=== PATIENT | female | born 1960 | race Hispanic/Latino ===

== ENCOUNTER 2020-12-06 06:44 | Inpatient (IN) | payer MEDICARE ==
[2020-12-06 18:54] LABS: Basophils % (Auto) 0.7 % (0.0-1.8); Eosinophils # (Auto) 0.2 K/mm3 (0.0-0.4); Eosinophils % (Auto) 3.4 % (0.0-4.3); Hematocrit 42.9 % (30.3-42.9); Lymphocytes # (Auto) 1.3 K/mm3 (1.2-5.4); Lymphocytes % (Auto) 23.2 % (13.4-35.0); Mean Corpuscular HGB Conc 33 % (30-34); Mean Corpuscular Volume 93 fl (79-97); Monocytes # (Auto) 0.3 K/mm3 (0.0-0.8); Monocytes % (Auto) 5.4 % (0.0-7.3); Platelet Count 256 K/mm3 (140-440); Red Blood Count 4.64 M/mm3 (3.65-5.03); Red Cell Distribution Width 14.4 % (13.2-15.2)
[2020-12-06 19:15] LABS: Calcium 8.8 mg/dL (8.4-10.2); Chol/HDL Ratio 2.5 %
--- NOTE | 2020-12-06 20:42 | Consultation ---
History of Present Illness - Reason for Consult Consult date: 12/06/20 Medical management Requesting physician: ZEN DO - History of Present Illness 60 YO Female with PSA, Obesity, Nicotine Dependence, Schizophrenia [facility]. Consult placed by Dr. Do for medical management. Patient seen and evaluated in the recreation room. Patient resting comfortably and denies complaints. Patient denies fever, chills , chest pain, palpitation, productive cough, skin rash, recent ill contacts, or known exposure to COVID-19. No reported nursing events. Patient cooperative with exam and interview. Past History Past Medical History: other (see HPI) Past Surgical History: No surgical history, Other (Reviewed) Social history: single, smoking. denies: alcohol abuse, prescription drug abuse Family history: hypertension Medications and Allergies Allergies Allergy/AdvReac Type Severity Reaction Status Date / Time chlorpromazine Allergy Unknown Verified 12/06/20 10:35 haloperidol Allergy Unknown Verified 12/06/20 10:35 ketorolac Allergy Unknown Verified 12/06/20 10:35 risperidone Allergy Unknown Verified 12/06/20 10:35 Home Medications Medication Instructions Recorded Confirmed Last Taken Type Divalproex Dr [DepaKOTE DR] 500 mg PO BID 12/06/20 12/06/20 Unknown History Ibuprofen [Motrin 600 MG tab] 600 mg PO TID 12/06/20 12/06/20 Unknown History Levothyroxine [Synthroid] 125 mcg PO QAM 12/06/20 12/06/20 Unknown History Pantoprazole [Protonix] 40 mg PO QDAY 12/06/20 12/06/20 Unknown History Ziprasidone [Geodon] 40 mg PO BID 12/06/20 12/06/20 Unknown History traZODone [Desyrel] 100 mg PO QHS 12/06/20 12/06/20 Unknown History Active Meds: Active Medications Divalproex Sodium (Divalproex Dr 500 Mg Tab) 500 mg PO BID NOBLE Ibuprofen (Ibuprofen 600 Mg Tab) 600 mg PO TID NOBLE Levothyroxine Sodium (Levothyroxine 125 Mcg Tab) 125 mcg PO 0600 NOBLE Pantoprazole Sodium (Pantoprazole 40 Mg Tab) 40 mg PO QDAY NOBLE Trazodone HCl (Trazodone 100 Mg Tab) 100 mg PO QHS NOBLE Ziprasidone (Ziprasidone 40 Mg Cap) 40 mg PO BID COUNTS INCLUDE 234 BEDS AT THE [facility] Review of Systems Constitutional: no weight loss, no weight gain, no fever, no chills Ears, nose, mouth and throat: no ear pain, no ear discharge, no tinnitis, no decreased hearing Breasts: no change in shape, no mass Cardiovascular: no chest pain, no palpitations, no rapid/irregular heart beat, no edema, no syncope Respiratory: no cough, no cough with sputum, no excessive sputum, no hemoptysis Gastrointestinal: no abdominal pain, no nausea, no vomiting, no diarrhea, no hematemesis Genitourinary Female: no pelvic pain, no dysuria, no urinary frequency, no urgency Rectal: no pain, no incontinence, no bleeding Musculoskeletal: no neck stiffness, no neck pain, no shooting arm pain Integumentary: no rash, no pruritis, no redness, no sores, no wounds Neurological: no transient paralysis, no paralysis, no weakness, no parathesias, no numbness, no tingling Psychiatric: no anxiety, no memory loss, no change in sleep habits, no sleep disturbances Endocrine: no cold intolerance, no polyphagia, no polydipsia, no polyuria Hematologic/Lymphatic: no easy bruising, no easy bleeding Allergic/Immunologic: no allergic rhinitis, no wheezing Exam - Constitutional Vitals: Temp Pulse Resp BP Pulse Ox 97.7 F 91 H 18 90/61 97 12/06/20 13:18 12/06/20 13:18 12/06/20 13:18 12/06/20 13:18 12/06/20 13:18 General appearance: Present: no acute distress, well-nourished - EENT Eyes: Present: PERRL ENT: hearing intact, clear oral mucosa - Neck Neck: Present: supple, normal ROM - Respiratory Respiratory effort: normal Respiratory: bilateral: CTA - Cardiovascular Heart Sounds: Present: S1 & S2. Absent: rub, click - Extremities Extremities: pulses symmetrical, No edema Peripheral Pulses: within normal limits - Abdominal General gastrointestinal: Present: soft, non-tender, non-distended, normal bowel sounds Female genitourinary: Present: normal - Integumentary Integumentary: Present: clear, warm, dry - Musculoskeletal Musculoskeletal: gait normal, strength equal bilaterally - Psychiatric Psychiatric: cooperative - Neurologic Neurologic: CNII-XII intact, moves all extremities Results - Labs CBC & Chem 7: 12/06/20 18:40 12/06/20 18:40 Labs: Abnormal lab results 12/06/20 12/06/20 Range/Units 18:40 18:40 Glucose 106 H (65-100) mg/dL HDL Cholesterol 70 H (40-59) mg/dL TSH 31.910 H (0.270-4.200) mlU/mL Assessment and Plan - Patient Problems (1) Obesity Current Visit: Yes Status: Acute Qualifiers: Body mass index: BMI 39.0-39.9 Plan to address problem: Balanced diet, increase physical activity at discharge, outpatient pulmonary follow-up for sleep study. (2) Nicotine dependence Current Visit: Yes Status: Acute Qualifiers: Nicotine product type: cigarettes Substance use status: in withdrawal Qualified Code(s): F17.213 - Nicotine dependence, cigarettes, with withdrawal Plan to address problem: Smoking cessation counseling, supportive care, nicotine transdermal patch daily, remove nightly. (3) Polysubstance abuse Current Visit: Yes Status: Acute Plan to address problem: Supportive care, outpatient substance abuse follow-up. No signs or symptoms of withdrawal at this time.
[2020-12-06] MEDS: IBUPROFEN 600 MG TAB PO SCH (20:58)
[2020-12-06] MEDS: traZODone 100 MG TAB PO SCH (21:54)
[2020-12-06] MEDS: DIVALPROEX DR 500 MG TAB PO SCH (21:54)
[2020-12-06] MEDS: ZIPRASIDONE 40 MG CAP PO SCH (21:54)
[2020-12-06] MEDS ORDERED: NICOTINE 7 MG/24 HR PATCH TD SCH (22:00)
[2020-12-07] MEDS: LEVOTHYROXINE 125 MCG TAB PO SCH (06:40)
--- NOTE | 2020-12-07 09:05 | History and Physical Report ---
GP History & Physical - History of Present Illness Date of admission: 12/06/20 Date of Examination: 12/07/20 Reason for Admission: Failure of Outpatient Treatment, Severe anxiety/depression History of Present Illness: Per Admission Note: "pt was initially taken to [facility] by EMS for walking around a assisted and complaining of chest, back and leg pain. After being discharged from [place] ED, pt refused to leave and was escorted out by the police for trespassing. Pt returned to [place] ED two more times before pt was deemed psychiatrically unstable and placed on a 1013." Lina Alvarado is a 60y/o female patient who states she was brought in for "confusion." She also says "I'm having delusions." The patient could not tell me what her delusions were when asked. She says "I'm not sure but it's all kinds of stuff." The patient denies SI/HI. When asked about hallucinations she says "they are not hallucinations, but delusions. I can't explain what they are about." She verbalizes using "meth, crack and cocaine." She denies alcohol use. She also says she smokes pack of cigarets daily. The patient says she has a history of schizophrenia and bipolar. She says she is currently not on any medications, but states she "was taking them." PAST PSYCHIATRIC HISTORY: Diagnoses: Bipolar, schizophrenia Suicide attempts or Self-harm behavior: Yes Prior psychiatric hospitalizations: Yes Substance Abuse history: meth, crack, cocaine Previous psychiatric medications tried: not currently on any Outpatient treatment: None PAST MEDICAL HISTORY: None reported Family Psychiatric History: None reported or documented SOCIAL HISTORY Marital Status: Single Living Arrangements: Alone Employment Status: Disabled Access to guns/weapons: Denies Education: High school History of Abuse: None report Legal History: None reported REVIEW OF SYSTEMS Constitutional: Negative for weight loss ENT: Negative for stridor Respiratory: Negative for cough or hemoptysis All other systems reviewed and are negative MENTAL STATUS EXAMINATION General Appearance and Behavior: Age appropriate, good hygiene, wearing appropriate clothes, good eye contact Cooperation: Participating/engaged, but Guarded Psychomotor Behavior: Psychomotor normal Mood: depressed Affect and affective range: congruent with stated mood Thought Process: illogical Thought Content: delusions Speech: Normal rate, volume and rhythm Suicidal Ideation: denies Homicidal Ideation: Denies HI Hallucinations: Denies Delusions: verbalizes delusions Impulse Control: Impaired Insight and Judgment: Limited insight and judgment Memory: limited Attention: Normal Orientation: Alert, Assessment and Plan (1) Schizophrenia Current Visit: Yes Status: Acute F32.9 Treatment Plan Patient admitted for inpatient psychiatric evaluation, medication adjustment and close monitoring The patient's behavior, mood, sleep and appetite will be closely monitored. Patient enrolled in individual and group therapeutic sessions and encouraged to attend. Patient provided with a safe and structured environment. Patient's physical health needs will be addressed by the Hospitalist. Hospitalist Consulted Labs including CBC, CMP, Lipid profile and Hemoglobin A1C levels ordered for baseline reference Social Assessment will be completed and the Business Mail Entry Clerk will work with patient and family to ensure a suitable and safe disposition Medication adjustment will be made as clinically indicated Restarted home medications Usual Wellness Islam/Preservation: - Start Trazodone 50 mg po QHS & 50 mg po QHS PRN between 10 PM & 2 AM for insomnia - Start Melatonin 5 mg po QHS to promote circadian rhythm - Start [place]-3 for brain health, reduce impulsivity, and as adjunctive treatment for mood disorder, continue upon discharge given overall benefits. - Start B1 prophylaxis with 200 mg po for 5 days The patient agreed on the treatment plan, understood the risk, benefit, alternative treatment, potential consequence of no treatment, and gave informed consent. Initial Certification I certify that the inpatient psychiatric services are required for treatment that could reasonably be expected to improve the patient's condition. Estimated days: 5 Post hospital care: primary care provider, psychiatric provider Legal Status: Voluntary Reaction to Hospitalization: Accepting Medications and Allergies Allergies Allergy/AdvReac Type Severity Reaction Status Date / Time chlorpromazine Allergy Unknown Verified 12/06/20 10:35 haloperidol Allergy Unknown Verified 12/06/20 10:35 ketorolac Allergy Unknown Verified 12/06/20 10:35 risperidone Allergy Unknown Verified 12/06/20 10:35 Home Medications Medication Instructions Recorded Confirmed Last Taken Type Divalproex Dr [DepaKOTE DR] 500 mg PO BID 12/06/20 12/06/20 Unknown History Ibuprofen [Motrin 600 MG tab] 600 mg PO TID 12/06/20 12/06/20 Unknown History Levothyroxine [Synthroid] 125 mcg PO QAM 12/06/20 12/06/20 Unknown History Pantoprazole [Protonix] 40 mg PO QDAY 12/06/20 12/06/20 Unknown History Ziprasidone [Geodon] 40 mg PO BID 12/06/20 12/06/20 Unknown History traZODone [Desyrel] 100 mg PO QHS 12/06/20 12/06/20 Unknown History Active Meds: Active Medications Divalproex Sodium (Divalproex Dr 500 Mg Tab) 500 mg PO BID [facility] Last Admin: 12/06/20 21:54 Dose: 500 mg Documented by: Ibuprofen (Ibuprofen 600 Mg Tab) 600 mg PO TID [facility] Last Admin: 12/06/20 20:58 Dose: 600 mg Documented by: Levothyroxine Sodium (Levothyroxine 125 Mcg Tab) 125 mcg PO 0600 [facility] Last Admin: 12/07/20 06:40 Dose: 125 mcg Documented by: Nicotine (Nicotine 7 Mg/24 Hr Patch) 7 mg TD Q24H [facility] Last Admin: 12/06/20 22:20 Dose: 7 mg Documented by: Pantoprazole Sodium (Pantoprazole 40 Mg Tab) 40 mg PO QDAY [facility] Trazodone HCl (Trazodone 100 Mg Tab) 100 mg PO QHS [facility] Last Admin: 12/06/20 21:54 Dose: 100 mg Documented by: Ziprasidone (Ziprasidone 40 Mg Cap) 40 mg PO BID [facility] Last Admin: 12/06/20 21:54 Dose: 40 mg Documented by: Results - Results Labs/Vitals: Laboratory Last Values WBC 5.7 K/mm3 (4.5-11.0) 12/06/20 18:40 RBC 4.64 M/mm3 (3.65-5.03) 12/06/20 18:40 Hgb 14.0 gm/dl (10.1-14.3) 12/06/20 18:40 Hct 42.9 % (30.3-42.9) 12/06/20 18:40 MCV 93 fl (79-97) 12/06/20 18:40 MCH 30 pg (28-32) 12/06/20 18:40 MCHC 33 % (30-34) 12/06/20 18:40 RDW 14.4 % (13.2-15.2) 12/06/20 18:40 Plt Count 256 K/mm3 (140-440) 12/06/20 18:40 Lymph % (Auto) 23.2 % (13.4-35.0) 12/06/20 18:40 [place] % (Auto) 5.4 % (0.0-7.3) 12/06/20 18:40 Eos % (Auto) 3.4 % (0.0-4.3) 12/06/20 18:40 Baso % (Auto) 0.7 % (0.0-1.8) 12/06/20 18:40 Lymph # (Auto) 1.3 K/mm3 (1.2-5.4) 12/06/20 18:40 [place] # (Auto) 0.3 K/mm3 (0.0-0.8) 12/06/20 18:40 Eos # (Auto) 0.2 K/mm3 (0.0-0.4) 12/06/20 18:40 Baso # (Auto) 0.0 K/mm3 (0.0-0.1) 12/06/20 18:40 Seg Neutrophils % 67.3 % (40.0-70.0) 12/06/20 18:40 Seg Neutrophils # 3.9 K/mm3 (1.8-7.7) 12/06/20 18:40 Sodium 139 mmol/L (137-145) 12/06/20 18:40 Potassium 3.8 mmol/L (3.6-5.0) 12/06/20 18:40 Chloride 102.6 mmol/L (98-107) 12/06/20 18:40 Carbon Dioxide 28 mmol/L (22-30) 12/06/20 18:40 Anion Gap 12 mmol/L 12/06/20 18:40 BUN 10 mg/dL (7-17) 12/06/20 18:40 Creatinine 1.0 mg/dL (0.6-1.2) 12/06/20 18:40 Estimated GFR 57 ml/min 12/06/20 18:40 BUN/Creatinine Ratio 10 % 12/06/20 18:40 Glucose 106 mg/dL (65-100) H 12/06/20 18:40 POC Glucose 104 mg/dL (70-105) 12/06/20 19:55 Hemoglobin A1c 5.5 % (4-6) 12/06/20 18:40 Calcium 8.8 mg/dL (8.4-10.2) 12/06/20 18:40 Total Bilirubin 0.30 mg/dL (0.1-1.2) 12/06/20 18:40 AST 18 units/L (5-40) 12/06/20 18:40 ALT 19 units/L (7-56) 12/06/20 18:40 Alkaline Phosphatase 112 units/L (35-129) 12/06/20 18:40 Total Protein 6.8 g/dL (6.3-8.2) 12/06/20 18:40 Albumin 4.0 g/dL (3.9-5) 12/06/20 18:40 Albumin/Globulin Ratio 1.4 % 12/06/20 18:40 Triglycerides 95 mg/dL (2-149) 12/06/20 18:40 Cholesterol 175 mg/dL (50-199) 12/06/20 18:40 LDL Cholesterol Direct 104 mg/dL (50-130) 12/06/20 18:40 HDL Cholesterol 70 mg/dL (40-59) H 12/06/20 18:40 Cholesterol/HDL Ratio 2.50 % 12/06/20 18:40 TSH 31.910 mlU/mL (0.270-4.200) H 12/06/20 18:40 Last Vital Signs Temp 98.4 F 12/06/20 22:00 Pulse 85 12/06/20 22:00 Resp 16 12/06/20 22:00 BP 97/66 12/06/20 22:00 Pulse Ox 96 12/06/20 22:00 Physical Examination - Constitutional Vitals: Vital Signs Temp Pulse Resp BP Pulse Ox 98.4 F 85 16 97/66 96 12/06/20 22:00 12/06/20 22:00 12/06/20 22:00 12/06/20 22:00 12/06/20 22:00 Temperature -Last 24 Hours Temperature 98.4 F Temperature 98.4 F Temperature 97.7 F Mental Status Exam - Vital signs Last Vital Signs Temp 98.4 F 12/06/20 22:00 Pulse 85 12/06/20 22:00 Resp 16 12/06/20 22:00 BP 97/66 12/06/20 22:00 Pulse Ox 96 12/06/20 22:00 Physician Certification - Certification Statement Physician Certification Statement: This is an acknowledgement statement that LINA ALVARADO is a 60 year old F who requires inpatient psychiatric admission for treatment which could reasonably be expected to improve the patient's condition for Estimated period of time patient will need to remain in the hospital: [ ] Plan for post-hospital care: [ ]
[2020-12-07] MEDS: IBUPROFEN 600 MG TAB PO SCH ×4 (09:26→20:54)
[2020-12-07] MEDS: DIVALPROEX DR 500 MG TAB PO SCH ×2 (09:26→21:22)
[2020-12-07] MEDS: ZIPRASIDONE 40 MG CAP PO SCH ×2 (09:26→21:22)
[2020-12-07] MEDS: PANTOPRAZOLE 40 MG TAB PO SCH (09:27)
[2020-12-07] MEDS: NICOTINE 7 MG/24 HR PATCH TD SCH (13:56)
--- NOTE | 2020-12-07 19:51 | Progress Note ---
Assessment and Plan - Patient Problems (1) Obesity Current Visit: Yes Status: Acute Qualifiers: Body mass index: BMI 39.0-39.9 Plan to address problem: Balanced diet, increase physical activity at discharge, outpatient pulmonary follow-up for sleep study. (2) Nicotine dependence Current Visit: Yes Status: Acute Qualifiers: Nicotine product type: cigarettes Substance use status: in withdrawal Qualified Code(s): F17.213 - Nicotine dependence, cigarettes, with withdrawal Plan to address problem: Smoking cessation counseling, supportive care, nicotine transdermal patch daily, remove nightly. (3) Polysubstance abuse Current Visit: Yes Status: Acute Plan to address problem: Supportive care, outpatient substance abuse follow-up. No signs or symptoms of withdrawal at this time. History Interval history: 60 YO Female with PSA, Obesity, Nicotine Dependence, Schizophrenia [facility]. Patient seen and evaluated in the recreation room. Patient resting comfortably and denies complaints. Patient cooperative with exam and interview. Hospitalist Physical - Constitutional Vitals: Temp Pulse Resp BP Pulse Ox 98.1 F 91 H 18 86/54 95 12/07/20 08:09 12/07/20 08:09 12/07/20 08:09 12/07/20 08:09 12/07/20 08:09 General appearance: Present: no acute distress, obese - EENT Eyes: Present: PERRL, EOM intact ENT: hearing intact - Neck Neck: Present: supple - Respiratory Respiratory: bilateral: CTA - Cardiovascular Rhythm: regular Heart Sounds: Present: S1 & S2 - Extremities Extremities: no ischemia Peripheral Pulses: within normal limits - Abdominal General gastrointestinal: soft, non-tender, non-distended - Integumentary Integumentary: Present: clear, erythema - Psychiatric Psychiatric: cooperative - Neurologic Neurologic: CNII-XII intact Results - Labs CBC & Chem 7: 12/06/20 18:40 12/06/20 18:40 Labs: Laboratory Last Values WBC 5.7 K/mm3 (4.5-11.0) 12/06/20 18:40 RBC 4.64 M/mm3 (3.65-5.03) 12/06/20 18:40 Hgb 14.0 gm/dl (10.1-14.3) 12/06/20 18:40 Hct 42.9 % (30.3-42.9) 12/06/20 18:40 MCV 93 fl (79-97) 12/06/20 18:40 MCH 30 pg (28-32) 12/06/20 18:40 MCHC 33 % (30-34) 12/06/20 18:40 RDW 14.4 % (13.2-15.2) 12/06/20 18:40 Plt Count 256 K/mm3 (140-440) 12/06/20 18:40 Lymph % (Auto) 23.2 % (13.4-35.0) 12/06/20 18:40 [place] % (Auto) 5.4 % (0.0-7.3) 12/06/20 18:40 Eos % (Auto) 3.4 % (0.0-4.3) 12/06/20 18:40 Baso % (Auto) 0.7 % (0.0-1.8) 12/06/20 18:40 Lymph # (Auto) 1.3 K/mm3 (1.2-5.4) 12/06/20 18:40 [place] # (Auto) 0.3 K/mm3 (0.0-0.8) 12/06/20 18:40 Eos # (Auto) 0.2 K/mm3 (0.0-0.4) 12/06/20 18:40 Baso # (Auto) 0.0 K/mm3 (0.0-0.1) 12/06/20 18:40 Seg Neutrophils % 67.3 % (40.0-70.0) 12/06/20 18:40 Seg Neutrophils # 3.9 K/mm3 (1.8-7.7) 12/06/20 18:40 Sodium 139 mmol/L (137-145) 12/06/20 18:40 Potassium 3.8 mmol/L (3.6-5.0) 12/06/20 18:40 Chloride 102.6 mmol/L (98-107) 12/06/20 18:40 Carbon Dioxide 28 mmol/L (22-30) 12/06/20 18:40 Anion Gap 12 mmol/L 12/06/20 18:40 BUN 10 mg/dL (7-17) 12/06/20 18:40 Creatinine 1.0 mg/dL (0.6-1.2) 12/06/20 18:40 Estimated GFR 57 ml/min 12/06/20 18:40 BUN/Creatinine Ratio 10 % 12/06/20 18:40 Glucose 106 mg/dL (65-100) H 12/06/20 18:40 POC Glucose 104 mg/dL (70-105) 12/06/20 19:55 Hemoglobin A1c 5.5 % (4-6) 12/06/20 18:40 Calcium 8.8 mg/dL (8.4-10.2) 12/06/20 18:40 Total Bilirubin 0.30 mg/dL (0.1-1.2) 12/06/20 18:40 AST 18 units/L (5-40) 12/06/20 18:40 ALT 19 units/L (7-56) 12/06/20 18:40 Alkaline Phosphatase 112 units/L (35-129) 12/06/20 18:40 Total Protein 6.8 g/dL (6.3-8.2) 12/06/20 18:40 Albumin 4.0 g/dL (3.9-5) 12/06/20 18:40 Albumin/Globulin Ratio 1.4 % 12/06/20 18:40 Triglycerides 95 mg/dL (2-149) 12/06/20 18:40 Cholesterol 175 mg/dL (50-199) 12/06/20 18:40 LDL Cholesterol Direct 104 mg/dL (50-130) 12/06/20 18:40 HDL Cholesterol 70 mg/dL (40-59) H 12/06/20 18:40 Cholesterol/HDL Ratio 2.50 % 12/06/20 18:40 TSH 31.910 mlU/mL (0.270-4.200) H 12/06/20 18:40 [place]/IV: Voiding Method Toilet Active Medications - Current Medications Current Medications: Generic Name Dose Route Start Last Admin Trade Name Freq PRN Reason Stop Dose Admin Divalproex Sodium 500 mg 12/06/20 22:00 12/07/20 09:[address] 500 Mg Tab PO 500 mg BID NOBLE Administration Ibuprofen 600 mg 12/06/20 20:00 12/07/20 14:02 Ibuprofen 600 Mg Tab PO Not Given TID NOBLE Levothyroxine Sodium 125 mcg 12/07/20 06:00 12/07/20 06:40 Levothyroxine 125 Mcg Tab PO 125 mcg 0600 NOBLE Administration Nicotine 7 mg 12/07/20 13:00 12/07/20 13:56 Nicotine 7 Mg/24 Hr Patch TD 7 mg DAILY NOBLE Administration Pantoprazole Sodium 40 mg 12/07/20 10:00 12/07/20 09:27 Pantoprazole 40 Mg Tab PO 40 mg QDAY NOBLE Administration Trazodone HCl 100 mg 12/06/20 22:00 12/06/20 21:54 Trazodone 100 Mg Tab PO 100 mg QHS NOBLE Administration Ziprasidone 40 mg 12/06/20 22:00 12/07/20 09:26 Ziprasidone 40 Mg Cap PO 40 mg BID NOBLE Administration
[2020-12-07] MEDS: traZODone 100 MG TAB PO SCH (21:22)
[2020-12-08] MEDS: LEVOTHYROXINE 125 MCG TAB PO SCH (05:46)
--- NOTE | 2020-12-08 08:27 | Progress Note ---
Subjective Date of service: 12/08/20 Principal diagnosis: Schizophrenia Subjective Comment: Per nurse note: Patient was quiet throughout the night. She woke this morning and vomited. She also had diarrhea. Patient presents as psychotic and had attempted to clean herself but had vomit and diarrhea all in her bathroom. Her room was cleaned and she took her thyroid medication. Patient will be closely monitored for safety. The patient was lying in bed. She is asleep. She seems excessively tired, as she never opens her eyes to look at me, and drifting off to sleep in between questioning. She says she didn't sleep well. The patient says she has been confused and delusional. She never opens her eyes to speak with me. When asked what kind of delusions she's been having, the patient appears to be searching for words. She then says "I don't know." She denies SI/HI or hallucinations. Reason for continued inpatient treatment: The patient appears to be having some psychoses as evidenced by feeling delusional and confused. The nursing staff a lso documented that the patient presents as psychotic. The patient has impaired sleep cycle. REVIEW OF SYSTEMS Constitutional: Negative for weight loss ENT: Negative for stridor Respiratory: Negative for cough or hemoptysis All other systems reviewed and are negative MENTAL STATUS EXAMINATION General Appearance and Behavior: Age appropriate, good hygiene, wearing appropriate clothes, good eye contact Cooperation: Participating/engaged, but Guarded Psychomotor Behavior: Psychomotor normal Mood: depressed Affect and affective range: congruent with stated mood Thought Process: illogical Thought Content: delusions Speech: Normal rate, volume and rhythm Suicidal Ideation: denies Homicidal Ideation: Denies HI Hallucinations: Denies Delusions: verbalizes delusions Impulse Control: Impaired Insight and Judgment: Limited insight and judgment Memory: limited Attention: Normal Orientation: Alert, Assessment and Plan (1) Schizophrenia Current Visit: Yes Status: Acute F32.9 Treatment Plan Patient admitted for inpatient psychiatric evaluation, medication adjustment and close monitoring The patient's behavior, mood, sleep and appetite will be closely monitored. Patient enrolled in individual and group therapeutic sessions and encouraged to attend. Patient provided with a safe and structured environment. Patient's physical health needs will be addressed by the Hospitalist. Hospitalist Consulted Labs including CBC, CMP, Lipid profile and Hemoglobin A1C levels ordered for baseline reference Valproic level 12/09/20 Social Assessment will be completed and the Ammonia Distiller will work with johnnie nt and family to ensure a suitable and safe disposition Medication adjustment will be made as clinically indicated Increased Trazondone 150mg po qhs Will adjust Depakote dose based on Valproic level Usual Wellness Worship/Preservation: - Start Trazodone 50 mg po QHS & 50 mg po QHS PRN between 10 PM & 2 AM for insomnia - Start Melatonin 5 mg po QHS to promote circadian rhythm - Start [place]-3 for brain health, reduce impulsivity, and as adjunctive treatment for mood disorder, continue upon discharge given overall benefits. - Start B1 prophylaxis with 200 mg po for 5 days The patient agreed on the treatment plan, understood the risk, benefit, alternative treatment, potential consequence of no treatment, and gave informed consent. Estimated days: 5 Post hospital care: primary care provider, psychiatric provider Medications and Allergies Allergies Allergy/AdvReac Type Severity Reaction Status Date / Time chlorpromazine Allergy Unknown Verified 12/06/20 10:35 haloperidol Allergy Unknown Verified 12/06/20 10:35 ketorolac Allergy Unknown Verified 12/06/20 10:35 risperidone Allergy Unknown Verified 12/06/20 10:35 Home Medications Medication Instructions Recorded Confirmed Last Taken Type Divalproex Dr [DepaKOTE DR] 500 mg PO BID 12/06/20 12/06/20 Unknown History Ibuprofen [Motrin 600 MG tab] 600 mg PO TID 12/06/20 12/06/20 Unknown History Levothyroxine [Synthroid] 125 mcg PO QAM 12/06/20 12/06/20 Unknown History Pantoprazole [Protonix] 40 mg PO QDAY 12/06/20 12/06/20 Unknown History Ziprasidone [Geodon] 40 mg PO BID 12/06/20 12/06/20 Unknown History traZODone [Desyrel] 100 mg PO QHS 12/06/20 12/06/20 Unknown History Active Meds: Active Medications Divalproex Sodium (Divalproex Dr 500 Mg Tab) 500 mg PO BID [facility] Last Admin: 12/07/20 21:22 Dose: 500 mg Documented by: Ibuprofen (Ibuprofen 600 Mg Tab) 600 mg PO TID [facility] Last Admin: 12/07/20 20:54 Dose: Not Given Documented by: Levothyroxine Sodium (Levothyroxine 125 Mcg Tab) 125 mcg PO 0600 [facility] Last Admin: 12/08/20 05:46 Dose: 125 mcg Documented by: Nicotine (Nicotine 7 Mg/24 Hr Patch) 7 mg TD DAILY [facility] Last Admin: 12/07/20 13:56 Dose: 7 mg Documented by: Pantoprazole Sodium (Pantoprazole 40 Mg Tab) 40 mg PO QDAY [facility] Last Admin: 12/07/20 09:27 Dose: 40 mg Documented by: Trazodone HCl (Trazodone 100 Mg Tab) 100 mg PO QHS [facility] Last Admin: 12/07/20 21:22 Dose: 100 mg Documented by: Ziprasidone (Ziprasidone 40 Mg Cap) 40 mg PO BID [facility] Last Admin: 12/07/20 21:22 Dose: Not Given Documented by: Results - Results Labs/Vitals: Laboratory Last Values WBC 5.7 K/mm3 (4.5-11.0) 12/06/20 18:40 RBC 4.64 M/mm3 (3.65-5.03) 12/06/20 18:40 Hgb 14.0 gm/dl (10.1-14.3) 12/06/20 18:40 Hct 42.9 % (30.3-42.9) 12/06/20 18:40 MCV 93 fl (79-97) 12/06/20 18:40 MCH 30 pg (28-32) 12/06/20 18:40 MCHC 33 % (30-34) 12/06/20 18:40 RDW 14.4 % (13.2-15.2) 12/06/20 18:40 Plt Count 256 K/mm3 (140-440) 12/06/20 18:40 Lymph % (Auto) 23.2 % (13.4-35.0) 12/06/20 18:40 [place] % (Auto) 5.4 % (0.0-7.3) 12/06/20 18:40 Eos % (Auto) 3.4 % (0.0-4.3) 12/06/20 18:40 Baso % (Auto) 0.7 % (0.0-1.8) 12/06/20 18:40 Lymph # (Auto) 1.3 K/mm3 (1.2-5.4) 12/06/20 18:40 [place] # (Auto) 0.3 K/mm3 (0.0-0.8) 12/06/20 18:40 Eos # (Auto) 0.2 K/mm3 (0.0-0.4) 12/06/20 18:40 Baso # (Auto) 0.0 K/mm3 (0.0-0.1) 12/06/20 18:40 Seg Neutrophils % 67.3 % (40.0-70.0) 12/06/20 18:40 Seg Neutrophils # 3.9 K/mm3 (1.8-7.7) 12/06/20 18:40 Sodium 139 mmol/L (137-145) 12/06/20 18:40 Potassium 3.8 mmol/L (3.6-5.0) 12/06/20 18:40 Chloride 102.6 mmol/L (98-107) 12/06/20 18:40 Carbon Dioxide 28 mmol/L (22-30) 12/06/20 18:40 Anion Gap 12 mmol/L 12/06/20 18:40 BUN 10 mg/dL (7-17) 12/06/20 18:40 Creatinine 1.0 mg/dL (0.6-1.2) 12/06/20 18:40 Estimated GFR 57 ml/min 12/06/20 18:40 BUN/Creatinine Ratio 10 % 12/06/20 18:40 Glucose 106 mg/dL (65-100) H 12/06/20 18:40 POC Glucose 104 mg/dL (70-105) 12/06/20 19:55 Hemoglobin A1c 5.5 % (4-6) 12/06/20 18:40 Calcium 8.8 mg/dL (8.4-10.2) 12/06/20 18:40 Total Bilirubin 0.30 mg/dL (0.1-1.2) 12/06/20 18:40 AST 18 units/L (5-40) 12/06/20 18:40 ALT 19 units/L (7-56) 12/06/20 18:40 Alkaline Phosphatase 112 units/L (35-129) 12/06/20 18:40 Total Protein 6.8 g/dL (6.3-8.2) 12/06/20 18:40 Albumin 4.0 g/dL (3.9-5) 12/06/20 18:40 Albumin/Globulin Ratio 1.4 % 12/06/20 18:40 Triglycerides 95 mg/dL (2-149) 12/06/20 18:40 Cholesterol 175 mg/dL (50-199) 12/06/20 18:40 LDL Cholesterol Direct 104 mg/dL (50-130) 12/06/20 18:40 HDL Cholesterol 70 mg/dL (40-59) H 12/06/20 18:40 Cholesterol/HDL Ratio 2.50 % 12/06/20 18:40 TSH 31.910 mlU/mL (0.270-4.200) H 12/06/20 18:40 Last Vital Signs Temp 97.5 F L 12/07/20 22:00 Pulse 78 12/07/20 22:00 Resp 18 12/07/20 22:00 BP 100/58 12/07/20 22:00 Pulse Ox 92 12/07/20 22:00
[2020-12-08] MEDS: ZIPRASIDONE 40 MG CAP PO SCH ×3 (09:49→21:40)
[2020-12-08] MEDS: DIVALPROEX DR 500 MG TAB PO SCH ×2 (09:49→21:16)
[2020-12-08] MEDS: PANTOPRAZOLE 40 MG TAB PO SCH (09:50)
[2020-12-08] MEDS: IBUPROFEN 600 MG TAB PO SCH ×2 (09:51→21:16)
[2020-12-08] MEDS: NICOTINE 7 MG/24 HR PATCH TD SCH (10:23)
[2020-12-08] MEDS: ONDANSETRON 4 MG ODT TAB PO PRN ×2 (13:56→21:39)
[2020-12-08] MEDS: traZODone 50 MG TAB PO SCH (21:16)
[2020-12-09] MEDS: LEVOTHYROXINE 125 MCG TAB PO SCH (06:07)
[2020-12-09] MEDS: ZIPRASIDONE 40 MG CAP PO SCH (10:30)
[2020-12-09] MEDS: DIVALPROEX DR 500 MG TAB PO SCH ×2 (10:30→21:31)
[2020-12-09] MEDS: IBUPROFEN 600 MG TAB PO SCH ×2 (10:30→15:31)
[2020-12-09] MEDS: NICOTINE 7 MG/24 HR PATCH TD SCH (10:30)
[2020-12-09] MEDS: PANTOPRAZOLE 40 MG TAB PO SCH (10:30)
--- NOTE | 2020-12-09 11:26 | Progress Note ---
Subjective Date of service: 12/09/20 Principal diagnosis: Schizophrenia Subjective Comment: Psych progress Patient seen this a.m. in the room, patient reports she is pleased, angry and irritated because I decided to withdraw from her sleep. Patient called me" f- bitch and a loud ass". Patient states she has been asking for a lot of things at this facility that she is not getting which also includes artificial tears for her eyes and that she also would like to stay in her room all day but in a letter. Reason for continued inpatient treatment: The patient appears to be having some psychoses as evidenced by feeling delusional and confused. The nursing staff also documented that the patient presents as psychotic. The patient has impaired sleep cycle. REVIEW OF SYSTEMS Constitutional: Negative for weight loss ENT: Negative for stridor Respiratory: Negative for cough or hemoptysis All other systems reviewed and are negative MENTAL STATUS EXAMINATION General Appearance and Behavior: Age appropriate, good hygiene, wearing appropriate clothes, good eye contact Cooperation: Participating/engaged, but Guarded Psychomotor Behavior: Psychomotor normal Mood: Angry and irritated Affect and affective range: congruent with stated mood Thought Process: illogical Thought Content: delusions Speech: Normal rate, volume and rhythm Suicidal Ideation: denies Homicidal Ideation: Denies HI Hallucinations: Denies Delusions: verbalizes delusions Impulse Control: Impaired Insight and Judgment: Limited insight and judgment Memory: limited Attention: Normal Orientation: Alert, Assessment and Plan (1) Schizophrenia Current Visit: Yes Status: Acute F32.9 Treatment Plan Patient admitted for inpatient psychiatric evaluation, medication adjustment and close monitoring The patient's behavior, mood, sleep and appetite will be closely monitored. Patient enrolled in individual and group therapeutic sessions and encouraged to attend. Patient provided with a safe and structured environment. Patient's physical health needs will be addressed by the Hospitalist. Hospitalist Consulted Labs including CBC, CMP, Lipid profile and Hemoglobin A1C levels ordered for baseline reference We will start patient on Abilify. Valproic level 12/09/20 Social Assessment will be completed and the Environmental Education Specialist will work with patient and family to ensure a suitable and safe disposition Medication adjustment will be made as clinically indicated Increased Trazondone 150mg po qhs Will adjust Depakote dose based on Valproic level Usual Wellness Restorationist/Preservation: - Start Trazodone 50 mg po QHS & 50 mg po QHS PRN between 10 PM & 2 AM for insomnia - Start Melatonin 5 mg po QHS to promote circadian rhythm - Start [place]-3 for brain health, reduce impulsivity, and as adjunctive treatment for mood disorder, continue upon discharge given overall benefits. - Start B1 prophylaxis with 200 mg po for 5 days The patient agreed on the treatment plan, understood the risk, benefit, alternative treatment, potential consequence of no treatment, and gave informed consent. Estimated days: 5 Post hospital care: primary care provider, psychiatric provider Medications and Allergies Allergies Allergy/AdvReac Type Severity Reaction Status Date / Time chlorpromazine Allergy Unknown Verified 12/06/20 10:35 haloperidol Allergy Unknown Verified 12/06/20 10:35 ketorolac Allergy Unknown Verified 12/06/20 10:35 risperidone Allergy Unknown Verified 12/06/20 10:35 Home Medications Medication Instructions Recorded Confirmed Last Taken Type Divalproex Dr [DepaKOTE DR] 500 mg PO BID 12/06/20 12/06/20 Unknown History Ibuprofen [Motrin 600 MG tab] 600 mg PO TID 12/06/20 12/06/20 Unknown History Levothyroxine [Synthroid] 125 mcg PO QAM 12/06/20 12/06/20 Unknown History Pantoprazole [Protonix] 40 mg PO QDAY 12/06/20 12/06/20 Unknown History Ziprasidone [Geodon] 40 mg PO BID 12/06/20 12/06/20 Unknown History traZODone [Desyrel] 100 mg PO QHS 12/06/20 12/06/20 Unknown History Active Meds: Active Medications Divalproex Sodium (Divalproex Dr 500 Mg Tab) 500 mg PO BID [facility] Last Admin: 12/09/20 10:30 Dose: 500 mg Documented by: Ibuprofen (Ibuprofen 600 Mg Tab) 600 mg PO TID [facility] Last Admin: 12/09/20 10:30 Dose: Not Given Documented by: Levothyroxine Sodium (Levothyroxine 125 Mcg Tab) 125 mcg PO 0600 [facility] Last Admin: 12/09/20 06:07 Dose: 125 mcg Documented by: Nicotine (Nicotine 7 Mg/24 Hr Patch) 7 mg TD DAILY [facility] Last Admin: 12/09/20 10:30 Dose: 7 mg Documented by: Ondansetron HCl (Ondansetron 4 Mg Odt Tab) 4 mg PO Q8H PRN PRN Reason: Nausea And Vomiting Last Admin: 12/08/20 21:39 Dose: 4 mg Documented by: Pantoprazole Sodium (Pantoprazole 40 Mg Tab) 40 mg PO QDAY [facility] Last Admin: 12/09/20 10:30 Dose: 40 mg Documented by: Trazodone HCl (Trazodone 50 Mg Tab) 150 mg PO QHS [facility] Last Admin: 12/08/20 21:16 Dose: 150 mg Documented by: Ziprasidone (Ziprasidone 40 Mg Cap) 40 mg PO BID [facility] Last Admin: 12/09/20 10:30 Dose: Not Given Documented by: Results - Results Labs/Vitals: Laboratory Last Values WBC 5.7 K/mm3 (4.5-11.0) 12/06/20 18:40 RBC 4.64 M/mm3 (3.65-5.03) 12/06/20 18:40 Hgb 14.0 gm/dl (10.1-14.3) 12/06/20 18:40 Hct 42.9 % (30.3-42.9) 12/06/20 18:40 MCV 93 fl (79-97) 12/06/20 18:40 MCH 30 pg (28-32) 12/06/20 18:40 MCHC 33 % (30-34) 12/06/20 18:40 RDW 14.4 % (13.2-15.2) 12/06/20 18:40 Plt Count 256 K/mm3 (140-440) 12/06/20 18:40 Lymph % (Auto) 23.2 % (13.4-35.0) 12/06/20 18:40 [place] % (Auto) 5.4 % (0.0-7.3) 12/06/20 18:40 Eos % (Auto) 3.4 % (0.0-4.3) 12/06/20 18:40 Baso % (Auto) 0.7 % (0.0-1.8) 12/06/20 18:40 Lymph # (Auto) 1.3 K/mm3 (1.2-5.4) 12/06/20 18:40 [place] # (Auto) 0.3 K/mm3 (0.0-0.8) 12/06/20 18:40 Eos # (Auto) 0.2 K/mm3 (0.0-0.4) 12/06/20 18:40 Baso # (Auto) 0.0 K/mm3 (0.0-0.1) 12/06/20 18:40 Seg Neutrophils % 67.3 % (40.0-70.0) 12/06/20 18:40 Seg Neutrophils # 3.9 K/mm3 (1.8-7.7) 12/06/20 18:40 Sodium 139 mmol/L (137-145) 12/06/20 18:40 Potassium 3.8 mmol/L (3.6-5.0) 12/06/20 18:40 Chloride 102.6 mmol/L (98-107) 12/06/20 18:40 Carbon Dioxide 28 mmol/L (22-30) 12/06/20 18:40 Anion Gap 12 mmol/L 12/06/20 18:40 BUN 10 mg/dL (7-17) 12/06/20 18:40 Creatinine 1.0 mg/dL (0.6-1.2) 12/06/20 18:40 Estimated GFR 57 ml/min 12/06/20 18:40 BUN/Creatinine Ratio 10 % 12/06/20 18:40 Glucose 106 mg/dL (65-100) H 12/06/20 18:40 POC Glucose 104 mg/dL (70-105) 12/06/20 19:55 Hemoglobin A1c 5.5 % (4-6) 12/06/20 18:40 Calcium 8.8 mg/dL (8.4-10.2) 12/06/20 18:40 Total Bilirubin 0.30 mg/dL (0.1-1.2) 12/06/20 18:40 AST 18 units/L (5-40) 12/06/20 18:40 ALT 19 units/L (7-56) 12/06/20 18:40 Alkaline Phosphatase 112 units/L (35-129) 12/06/20 18:40 Total Protein 6.8 g/dL (6.3-8.2) 12/06/20 18:40 Albumin 4.0 g/dL (3.9-5) 12/06/20 18:40 Albumin/Globulin Ratio 1.4 % 12/06/20 18:40 Triglycerides 95 mg/dL (2-149) 12/06/20 18:40 Cholesterol 175 mg/dL (50-199) 12/06/20 18:40 LDL Cholesterol Direct 104 mg/dL (50-130) 12/06/20 18:40 HDL Cholesterol 70 mg/dL (40-59) H 12/06/20 18:40 Cholesterol/HDL Ratio 2.50 % 12/06/20 18:40 TSH 31.910 mlU/mL (0.270-4.200) H 12/06/20 18:40 Valproic Acid 73.6 ug/mL (50-100) 12/09/20 05:42 Last Vital Signs Temp 98.5 F 12/09/20 08:30 Pulse 75 12/09/20 08:30 Resp 18 12/08/20 19:44 BP 83/54 12/09/20 08:30 Pulse Ox 93 12/08/20 19:44
[2020-12-09] MEDS: traZODone 50 MG TAB PO SCH (21:31)
[2020-12-10] MEDS: LEVOTHYROXINE 125 MCG TAB PO SCH (05:20)
[2020-12-10] MEDS: ONDANSETRON 4 MG ODT TAB PO PRN (05:30)
--- NOTE | 2020-12-10 08:40 | Progress Note ---
Subjective Date of service: 12/10/20 Principal diagnosis: Schizophrenia Subjective Comment: Psych Nurse: pt rested well during the night, presents as sleeping for 8hrs plus, she woke this morning and vomited undigested food particles, pt had a shower, presents as psychotic, laughing inappropriately, zofran 4mg po given at 0530, no distress noted, will continue to monitor for safety. Psych progress Patient seen this AM appears irritable and does not want to get up from bed and be left alone. Patient states she is sleeping well, food is crappy here and she does not like it much. She denies hearing voices but mine, denies SI or HI thoughts. Nurse reports patient is acting psychotic. Reason for continued inpatient treatment: Continue to monitor for mood stability, constantly irritated most times, REVIEW OF SYSTEMS Constitutional: Negative for weight loss ENT: Negative for stridor Respiratory: Negative for cough or hemoptysis All other systems reviewed and are negative MENTAL STATUS EXAMINATION General Appearance and Behavior: Age appropriate, good hygiene, wearing appropriate clothes, good eye contact Cooperation: Participating/engaged, but Guarded Psychomotor Behavior: Psychomotor normal Mood: Angry and irritated Affect and affective range: congruent with stated mood Thought Process: illogical Thought Content: delusions Speech: Normal rate, volume and rhythm Suicidal Ideation: denies Homicidal Ideation: Denies HI Hallucinations: Denies Delusions: verbalizes delusions Impulse Control: Impaired Insight and Judgment: Limited insight and judgment Memory: limited Attention: Normal Orientation: Alert, oriented Assessment and Plan (1) Schizophrenia Current Visit: Yes Status: Acute F32.9 Treatment Plan Patient admitted for inpatient psychiatric evaluation, medication adjustment and close monitoring The patient's behavior, mood, sleep and appetite will be closely monitored. Patient enrolled in individual and group therapeutic sessions and encouraged to attend. Patient provided with a safe and structured environment. Patient's physical health needs will be addressed by the Hospitalist. Hospitalist Consulted Labs including CBC, CMP, Lipid profile and Hemoglobin A1C levels ordered for baseline reference We will start patient on Abilify. Check Valproic level today Social Assessment will be completed and the Astronomy Instructor will work with patient and family to ensure a suitable and safe disposition Medication adjustment will be made as clinically indicated Increased Trazondone 150mg po qhs Will adjust Depakote dose based on Valproic level Usual Wellness Confucianist/Preservation: - Start Trazodone 50 mg po QHS & 50 mg po QHS PRN between 10 PM & 2 AM for insomnia - Start Melatonin 5 mg po QHS to promote circadian rhythm - Start [place]-3 for brain health, reduce impulsivity, and as adjunctive treatment for mood disorder, continue upon discharge given overall benefits. - Start B1 prophylaxis with 200 mg po for 5 days The patient agreed on the treatment plan, understood the risk, benefit, alternative treatment, potential consequence of no treatment, and gave informed consent. Estimated days: 5 Post hospital care: primary care provider, psychiatric provider Medications and Allergies Allergies Allergy/AdvReac Type Severity Reaction Status Date / Time chlorpromazine Allergy Unknown Verified 12/06/20 10:35 haloperidol Allergy Unknown Verified 12/06/20 10:35 ketorolac Allergy Unknown Verified 12/06/20 10:35 risperidone Allergy Unknown Verified 12/06/20 10:35 Home Medications Medication Instructions Recorded Confirmed Last Taken Type Divalproex Dr [DepaKOTE DR] 500 mg PO BID 12/06/20 12/06/20 Unknown History Ibuprofen [Motrin 600 MG tab] 600 mg PO TID 12/06/20 12/06/20 Unknown History Levothyroxine [Synthroid] 125 mcg PO QAM 12/06/20 12/06/20 Unknown History Pantoprazole [Protonix] 40 mg PO QDAY 12/06/20 12/06/20 Unknown History Ziprasidone [Geodon] 40 mg PO BID 12/06/20 12/06/20 Unknown History traZODone [Desyrel] 100 mg PO QHS 12/06/20 12/06/20 Unknown History Active Meds: Active Medications Aripiprazole (Aripiprazole 15 Mg Tab) 15 mg PO QDAY [facility] Divalproex Sodium (Divalproex Dr 500 Mg Tab) 500 mg PO BID [facility] Last Admin: 12/09/20 21:31 Dose: 500 mg Documented by: Levothyroxine Sodium (Levothyroxine 125 Mcg Tab) 125 mcg PO 0600 [facility] Last Admin: 12/10/20 05:20 Dose: 125 mcg Documented by: Nicotine (Nicotine 7 Mg/24 Hr Patch) 7 mg TD DAILY [facility] Last Admin: 12/09/20 10:30 Dose: 7 mg Documented by: Ondansetron HCl (Ondansetron 4 Mg Odt Tab) 4 mg PO Q8H PRN PRN Reason: Nausea And Vomiting Last Admin: 12/10/20 05:30 Dose: 4 mg Documented by: Pantoprazole Sodium (Pantoprazole 40 Mg Tab) 40 mg PO QDAY [facility] Last Admin: 12/09/20 10:30 Dose: 40 mg Documented by: Trazodone HCl (Trazodone 50 Mg Tab) 150 mg PO QHS [facility] Last Admin: 12/09/20 21:31 Dose: 150 mg Documented by: Results - Results Labs/Vitals: Laboratory Last Values WBC 5.7 K/mm3 (4.5-11.0) 12/06/20 18:40 RBC 4.64 M/mm3 (3.65-5.03) 12/06/20 18:40 Hgb 14.0 gm/dl (10.1-14.3) 12/06/20 18:40 Hct 42.9 % (30.3-42.9) 12/06/20 18:40 MCV 93 fl (79-97) 12/06/20 18:40 MCH 30 pg (28-32) 12/06/20 18:40 MCHC 33 % (30-34) 12/06/20 18:40 RDW 14.4 % (13.2-15.2) 12/06/20 18:40 Plt Count 256 K/mm3 (140-440) 12/06/20 18:40 Lymph % (Auto) 23.2 % (13.4-35.0) 12/06/20 18:40 [place] % (Auto) 5.4 % (0.0-7.3) 12/06/20 18:40 Eos % (Auto) 3.4 % (0.0-4.3) 12/06/20 18:40 Baso % (Auto) 0.7 % (0.0-1.8) 12/06/20 18:40 Lymph # (Auto) 1.3 K/mm3 (1.2-5.4) 12/06/20 18:40 [place] # (Auto) 0.3 K/mm3 (0.0-0.8) 12/06/20 18:40 Eos # (Auto) 0.2 K/mm3 (0.0-0.4) 12/06/20 18:40 Baso # (Auto) 0.0 K/mm3 (0.0-0.1) 12/06/20 18:40 Seg Neutrophils % 67.3 % (40.0-70.0) 12/06/20 18:40 Seg Neutrophils # 3.9 K/mm3 (1.8-7.7) 12/06/20 18:40 Sodium 139 mmol/L (137-145) 12/06/20 18:40 Potassium 3.8 mmol/L (3.6-5.0) 12/06/20 18:40 Chloride 102.6 mmol/L (98-107) 12/06/20 18:40 Carbon Dioxide 28 mmol/L (22-30) 12/06/20 18:40 Anion Gap 12 mmol/L 12/06/20 18:40 BUN 10 mg/dL (7-17) 12/06/20 18:40 Creatinine 1.0 mg/dL (0.6-1.2) 12/06/20 18:40 Estimated GFR 57 ml/min 12/06/20 18:40 BUN/Creatinine Ratio 10 % 12/06/20 18:40 Glucose 106 mg/dL (65-100) H 12/06/20 18:40 POC Glucose 104 mg/dL (70-105) 12/06/20 19:55 Hemoglobin A1c 5.5 % (4-6) 12/06/20 18:40 Calcium 8.8 mg/dL (8.4-10.2) 12/06/20 18:40 Total Bilirubin 0.30 mg/dL (0.1-1.2) 12/06/20 18:40 AST 18 units/L (5-40) 12/06/20 18:40 ALT 19 units/L (7-56) 12/06/20 18:40 Alkaline Phosphatase 112 units/L (35-129) 12/06/20 18:40 Total Protein 6.8 g/dL (6.3-8.2) 12/06/20 18:40 Albumin 4.0 g/dL (3.9-5) 12/06/20 18:40 Albumin/Globulin Ratio 1.4 % 12/06/20 18:40 Triglycerides 95 mg/dL (2-149) 12/06/20 18:40 Cholesterol 175 mg/dL (50-199) 12/06/20 18:40 LDL Cholesterol Direct 104 mg/dL (50-130) 12/06/20 18:40 HDL Cholesterol 70 mg/dL (40-59) H 12/06/20 18:40 Cholesterol/HDL Ratio 2.50 % 12/06/20 18:40 TSH 31.910 mlU/mL (0.270-4.200) H 12/06/20 18:40 Valproic Acid 73.6 ug/mL (50-100) 12/09/20 05:42 Last Vital Signs Temp 98.5 F 12/10/20 07:36 Pulse 76 12/10/20 08:15 Resp 15 12/10/20 07:36 BP 112/67 12/10/20 07:36 Pulse Ox 97 12/10/20 08:15
[2020-12-10] MEDS: NICOTINE 7 MG/24 HR PATCH TD SCH (09:45)
[2020-12-10] MEDS: ARIPiprazole 15 MG TAB PO SCH (13:25)
[2020-12-10] MEDS: PANTOPRAZOLE 40 MG TAB PO SCH (13:26)
[2020-12-10] MEDS: DIVALPROEX DR 500 MG TAB PO SCH ×2 (13:26→21:30)
[2020-12-10] MEDS: traZODone 50 MG TAB PO SCH (21:30)
[2020-12-10] MEDS: DIVALPROEX DR 250 MG TAB PO SCH (21:35)
[2020-12-11] MEDS: LEVOTHYROXINE 125 MCG TAB PO SCH (07:00)
--- NOTE | 2020-12-11 08:54 | Progress Note ---
Subjective Date of service: 12/11/20 Principal diagnosis: Schizophrenia Subjective Comment: Psych Nurse: Pt refused her HS meds Depakote and Trazodone. "I don't want no more meds today," and ordered sports book writer out of her room. Pt is labile, verbally aggressive, and irritable. Provider made aware. Psych progress Patient seen in her room appears half naked, pants seen in corner of room with faces, patient reported she had an episode of diarrhea and couldnt make it to he r room. She says it is now resolved. She endorses not taking medication yesterday because she believe she had already taken 3 doses yesterday. She denies SI, HI or AVH at the moment. Nurse informed to assist with patient care and cleanliness. Reason for continued inpatient treatment: Patient continues to be disorganized, not caring for self, medication non compliance and appears, constantly irritated most times, REVIEW OF SYSTEMS Constitutional: Negative for weight loss ENT: Negative for stridor Respiratory: Negative for cough or hemoptysis All other systems reviewed and are negative MENTAL STATUS EXAMINATION General Appearance and Behavior: Age appropriate, good hygiene, wearing appropriate clothes, good eye contact Cooperation: Participating/engaged, but Guarded Psychomotor Behavior: Psychomotor normal Mood: Angry and irritated Affect and affective range: congruent with stated mood Thought Process: illogical Thought Content: delusions Speech: Normal rate, volume and rhythm Suicidal Ideation: denies Homicidal Ideation: Denies HI Hallucinations: Denies Delusions: verbalizes delusions Impulse Control: Impaired Insight and Judgment: Limited insight and judgment Memory: limited Attention: Normal Orientation: Alert, oriented Assessment and Plan (1) Schizophrenia Current Visit: Yes Status: Acute F32.9 Treatment Plan Patient admitted for inpatient psychiatric evaluation, medication adjustment and close monitoring The patient's behavior, mood, sleep and appetite will be closely monitored. Patient enrolled in individual and group therapeutic sessions and encouraged to attend. Patient provided with a safe and structured environment. Patient's physical health needs will be addressed by the Hospitalist. Hospitalist Consulted Labs including CBC, CMP, Lipid profile and Hemoglobin A1C levels ordered for baseline reference We will start patient on Abilify. Check Valproic level today Social Assessment will be completed and the Tripoler will work with patient and family to ensure a suitable and safe disposition Medication adjustment will be made as clinically indicated Increased Trazondone 150mg po qhs Will adjust Depakote dose based on Valproic level Usual Wellness [employer]/Preservation: - Start Trazodone 50 mg po QHS & 50 mg po QHS PRN between 10 PM & 2 AM for insomnia - Start Melatonin 5 mg po QHS to promote circadian rhythm - Start [place]-3 for brain health, reduce impulsivity, and as adjunctive treatment for mood disorder, continue upon discharge given overall benefits. - Start B1 prophylaxis with 200 mg po for 5 days The patient agreed on the treatment plan, understood the risk, benefit, alternative treatment, potential consequence of no treatment, and gave informed consent. Estimated days: 5 Post hospital care: primary care provider, psychiatric provider Medications and Allergies Allergies Allergy/AdvReac Type Severity Reaction Status Date / Time chlorpromazine Allergy Unknown Verified 12/06/20 10:35 haloperidol Allergy Unknown Verified 12/06/20 10:35 ketorolac Allergy Unknown Verified 12/06/20 10:35 risperidone Allergy Unknown Verified 12/06/20 10:35 Home Medications Medication Instructions Recorded Confirmed Last Taken Type Divalproex Dr [DepaKOTE DR] 500 mg PO BID 12/06/20 12/06/20 Unknown History Ibuprofen [Motrin 600 MG tab] 600 mg PO TID 12/06/20 12/06/20 Unknown History Levothyroxine [Synthroid] 125 mcg PO QAM 12/06/20 12/06/20 Unknown History Pantoprazole [Protonix] 40 mg PO QDAY 12/06/20 12/06/20 Unknown History Ziprasidone [Geodon] 40 mg PO BID 12/06/20 12/06/20 Unknown History traZODone [Desyrel] 100 mg PO QHS 12/06/20 12/06/20 Unknown History Active Meds: Active Medications Aripiprazole (Aripiprazole 15 Mg Tab) 15 mg PO QDAY [facility] Last Admin: 12/10/20 13:25 Dose: 15 mg Documented by: Divalproex Sodium (Divalproex Dr 500 Mg Tab) 500 mg PO BID [facility] Last Admin: 12/10/20 21:30 Dose: 500 mg Documented by: Divalproex Sodium (Divalproex Dr 250 Mg Tab) 250 mg PO BID [facility] Last Admin: 12/10/20 21:35 Dose: 250 mg Documented by: Levothyroxine Sodium (Levothyroxine 125 Mcg Tab) 125 mcg PO 0600 [facility] Last Admin: 12/11/20 07:00 Dose: 125 mcg Documented by: Nicotine (Nicotine 21 Mg/24 Hr Patch) 21 mg TD DAILY [facility] Ondansetron HCl (Ondansetron 4 Mg Odt Tab) 4 mg PO Q8H PRN PRN Reason: Nausea And Vomiting Last Admin: 12/10/20 05:30 Dose: 4 mg Documented by: Pantoprazole Sodium (Pantoprazole 40 Mg Tab) 40 mg PO QDAY [facility] Last Admin: 12/10/20 13:26 Dose: 40 mg Documented by: Trazodone HCl (Trazodone 50 Mg Tab) 150 mg PO QHS [facility] Last Admin: 12/10/20 21:30 Dose: 150 mg Documented by: Results - Results Labs/Vitals: Laboratory Last Values WBC 5.7 K/mm3 (4.5-11.0) 12/06/20 18:40 RBC 4.64 M/mm3 (3.65-5.03) 12/06/20 18:40 Hgb 14.0 gm/dl (10.1-14.3) 12/06/20 18:40 Hct 42.9 % (30.3-42.9) 12/06/20 18:40 MCV 93 fl (79-97) 12/06/20 18:40 MCH 30 pg (28-32) 12/06/20 18:40 MCHC 33 % (30-34) 12/06/20 18:40 RDW 14.4 % (13.2-15.2) 12/06/20 18:40 Plt Count 256 K/mm3 (140-440) 12/06/20 18:40 Lymph % (Auto) 23.2 % (13.4-35.0) 12/06/20 18:40 [place] % (Auto) 5.4 % (0.0-7.3) 12/06/20 18:40 Eos % (Auto) 3.4 % (0.0-4.3) 12/06/20 18:40 Baso % (Auto) 0.7 % (0.0-1.8) 12/06/20 18:40 Lymph # (Auto) 1.3 K/mm3 (1.2-5.4) 12/06/20 18:40 [place] # (Auto) 0.3 K/mm3 (0.0-0.8) 12/06/20 18:40 Eos # (Auto) 0.2 K/mm3 (0.0-0.4) 12/06/20 18:40 Baso # (Auto) 0.0 K/mm3 (0.0-0.1) 12/06/20 18:40 Seg Neutrophils % 67.3 % (40.0-70.0) 12/06/20 18:40 Seg Neutrophils # 3.9 K/mm3 (1.8-7.7) 12/06/20 18:40 Sodium 139 mmol/L (137-145) 12/06/20 18:40 Potassium 3.8 mmol/L (3.6-5.0) 12/06/20 18:40 Chloride 102.6 mmol/L (98-107) 12/06/20 18:40 Carbon Dioxide 28 mmol/L (22-30) 12/06/20 18:40 Anion Gap 12 mmol/L 12/06/20 18:40 BUN 10 mg/dL (7-17) 12/06/20 18:40 Creatinine 1.0 mg/dL (0.6-1.2) 12/06/20 18:40 Estimated GFR 57 ml/min 12/06/20 18:40 BUN/Creatinine Ratio 10 % 12/06/20 18:40 Glucose 106 mg/dL (65-100) H 12/06/20 18:40 POC Glucose 104 mg/dL (70-105) 12/06/20 19:55 Hemoglobin A1c 5.5 % (4-6) 12/06/20 18:40 Calcium 8.8 mg/dL (8.4-10.2) 12/06/20 18:40 Total Bilirubin 0.30 mg/dL (0.1-1.2) 12/06/20 18:40 AST 18 units/L (5-40) 12/06/20 18:40 ALT 19 units/L (7-56) 12/06/20 18:40 Alkaline Phosphatase 112 units/L (35-129) 12/06/20 18:40 Total Protein 6.8 g/dL (6.3-8.2) 12/06/20 18:40 Albumin 4.0 g/dL (3.9-5) 12/06/20 18:40 Albumin/Globulin Ratio 1.4 % 12/06/20 18:40 Triglycerides 95 mg/dL (2-149) 12/06/20 18:40 Cholesterol 175 mg/dL (50-199) 12/06/20 18:40 LDL Cholesterol Direct 104 mg/dL (50-130) 12/06/20 18:40 HDL Cholesterol 70 mg/dL (40-59) H 12/06/20 18:40 Cholesterol/HDL Ratio 2.50 % 12/06/20 18:40 TSH 31.910 mlU/mL (0.270-4.200) H 12/06/20 18:40 Valproic Acid 44.1 ug/mL (50-100) L 12/10/20 11:52 Last Vital Signs Temp 98.2 F 12/11/20 08:27 Pulse 78 12/11/20 08:27 Resp 18 12/11/20 08:27 BP 94/49 12/11/20 08:27 Pulse Ox 93 12/11/20 08:27
[2020-12-11] MEDS: NICOTINE 21 MG/24 HR PATCH TD SCH (09:27)
[2020-12-11] MEDS ORDERED: BISMUTH SUBSALICYLATE 262 MG/15 ML ORAL LIQD PO PRN ×2 (10:00→11:00)
[2020-12-11] MEDS: PANTOPRAZOLE 40 MG TAB PO SCH (13:31)
[2020-12-11] MEDS: ARIPiprazole 15 MG TAB PO SCH (13:31)
[2020-12-11] MEDS: DIVALPROEX DR 250 MG TAB PO SCH ×2 (13:32→21:53)
[2020-12-11] MEDS: DIVALPROEX DR 500 MG TAB PO SCH ×2 (13:32→21:53)
[2020-12-11] MEDS: ONDANSETRON 4 MG ODT TAB PO PRN (19:03)
[2020-12-11] MEDS: traZODone 50 MG TAB PO SCH (21:53)
[2020-12-12] MEDS: LEVOTHYROXINE 125 MCG TAB PO SCH (06:35)
--- NOTE | 2020-12-12 07:46 | Progress Note ---
Subjective Date of service: 12/12/20 Principal diagnosis: Schizophrenia Subjective Comment: Psych Nurse: Patient slept late this morning and refused medications until she got up. She had 2 episodes of diarrhea. Spoke with Dr. Bauman who ordered kaopectate 30 ml four times daily prn. Patient had no further episodes of diarrhea. He also ordered a stool sample to r/o c-diff. After she got up she ate a late lunch. Then asked for grilled cheese and tomato soup for dinner. The kitchen fixed it for her. Today she smiles with interactions. This afternoon she took a shower. Patient denies si/hi/ah/vh. She was medication compliant. Will continue to monitor patient for safety. Psych progress Patient seen this AM, appears irritated, states she is not feeling fine because she is hungry. Patient then states she would like to sleep. SHe denies hearing voices, reports her dairrhea stopped, denies SI, HI and AVH. Nurse informed to assist with patient care and cleanliness. Reason for continued inpatient treatment: Patient in improving, not caring for self, medication non compliance and appears, constantly irritated most times, REVIEW OF SYSTEMS Constitutional: Negative for weight loss ENT: Negative for stridor Respiratory: Negative for cough or hemoptysis All other systems reviewed and are negative MENTAL STATUS EXAMINATION General Appearance and Behavior: Age appropriate, good hygiene, wearing appropriate clothes, good eye contact Cooperation: Participating/engaged, but Guarded Psychomotor Behavior: Psychomotor normal Mood: Angry and irritated Affect and affective range: congruent with stated mood Thought Process: illogical Thought Content: delusions Speech: Normal rate, volume and rhythm Suicidal Ideation: denies Homicidal Ideation: Denies HI Hallucinations: Denies Delusions: verbalizes delusions Impulse Control: Impaired Insight and Judgment: Limited insight and judgment Memory: limited Attention: Normal Orientation: Alert, oriented Assessment and Plan (1) Schizophrenia Current Visit: Yes Status: Acute F32.9 Treatment Plan Patient admitted for inpatient psychiatric evaluation, medication adjustment and close monitoring The patient's behavior, mood, sleep and appetite will be closely monitored. Patient enrolled in individual and group therapeutic sessions and encouraged to attend. Patient provided with a safe and structured environment. Patient's physical health needs will be addressed by the Hospitalist. Hospitalist Consulted Labs including CBC, CMP, Lipid profile and Hemoglobin A1C levels ordered for baseline reference We will start patient on Abilify. Check Valproic level today Social Assessment will be completed and the Welding Machine Tender will work with patient and family to ensure a suitable and safe disposition Medication adjustment will be made as clinically indicated Increased Trazondone 150mg po qhs Will adjust Depakote dose based on Valproic level Usual Wellness Religious/Preservation: - Start Trazodone 50 mg po QHS & 50 mg po QHS PRN between 10 PM & 2 AM for insomnia - Start Melatonin 5 mg po QHS to promote circadian rhythm - Start [place]-3 for brain health, reduce impulsivity, and as adjunctive treatment for mood disorder, continue upon discharge given overall benefits. - Start B1 prophylaxis with 200 mg po for 5 days The patient agreed on the treatment plan, understood the risk, benefit, alternative treatment, potential consequence of no treatment, and gave informed consent. Estimated days: 4 Post hospital care: primary care provider, psychiatric provider Medications and Allergies Allergies Allergy/AdvReac Type Severity Reaction Status Date / Time chlorpromazine Allergy Unknown Verified 12/06/20 10:35 haloperidol Allergy Unknown Verified 12/06/20 10:35 ketorolac Allergy Unknown Verified 12/06/20 10:35 risperidone Allergy Unknown Verified 12/06/20 10:35 Home Medications Medication Instructions Recorded Confirmed Last Taken Type Divalproex Dr [DepaKOTE DR] 500 mg PO BID 12/06/20 12/06/20 Unknown History Ibuprofen [Motrin 600 MG tab] 600 mg PO TID 12/06/20 12/06/20 Unknown History Levothyroxine [Synthroid] 125 mcg PO QAM 12/06/20 12/06/20 Unknown History Pantoprazole [Protonix] 40 mg PO QDAY 12/06/20 12/06/20 Unknown History Ziprasidone [Geodon] 40 mg PO BID 12/06/20 12/06/20 Unknown History traZODone [Desyrel] 100 mg PO QHS 12/06/20 12/06/20 Unknown History Active Meds: Active Medications Aripiprazole (Aripiprazole 15 Mg Tab) 15 mg PO QDAY [facility] Last Admin: 12/11/20 13:31 Dose: 15 mg Documented by: Bismuth Subsalicylate (Bismuth Subsalicylate 262 Mg/15 Ml Oral Liqd) 524 mg PO Q6H PRN PRN Reason: Indigestion Divalproex Sodium (Divalproex Dr 500 Mg Tab) 500 mg PO BID [facility] Last Admin: 12/11/20 21:53 Dose: 500 mg Documented by: Divalproex Sodium (Divalproex Dr 250 Mg Tab) 250 mg PO BID [facility] Last Admin: 12/11/20 21:53 Dose: 250 mg Documented by: Levothyroxine Sodium (Levothyroxine 125 Mcg Tab) 125 mcg PO 0600 [facility] Last Admin: 12/12/20 06:35 Dose: 125 mcg Documented by: Nicotine (Nicotine 21 Mg/24 Hr Patch) 21 mg TD DAILY [facility] Last Admin: 12/11/20 09:27 Dose: 21 mg Documented by: Ondansetron HCl (Ondansetron 4 Mg Odt Tab) 4 mg PO Q8H PRN PRN Reason: Nausea And Vomiting Last Admin: 12/11/20 19:03 Dose: 4 mg Documented by: Pantoprazole Sodium (Pantoprazole 40 Mg Tab) 40 mg PO QDAY [facility] Last Admin: 12/11/20 13:31 Dose: 40 mg Documented by: Trazodone HCl (Trazodone 50 Mg Tab) 150 mg PO QHS [facility] Last Admin: 12/11/20 21:53 Dose: 150 mg Documented by: Results - Results Labs/Vitals: Laboratory Last Values WBC 5.7 K/mm3 (4.5-11.0) 12/06/20 18:40 RBC 4.64 M/mm3 (3.65-5.03) 12/06/20 18:40 Hgb 14.0 gm/dl (10.1-14.3) 12/06/20 18:40 Hct 42.9 % (30.3-42.9) 12/06/20 18:40 MCV 93 fl (79-97) 12/06/20 18:40 MCH 30 pg (28-32) 12/06/20 18:40 MCHC 33 % (30-34) 12/06/20 18:40 RDW 14.4 % (13.2-15.2) 12/06/20 18:40 Plt Count 256 K/mm3 (140-440) 12/06/20 18:40 Lymph % (Auto) 23.2 % (13.4-35.0) 12/06/20 18:40 [place] % (Auto) 5.4 % (0.0-7.3) 12/06/20 18:40 Eos % (Auto) 3.4 % (0.0-4.3) 12/06/20 18:40 Baso % (Auto) 0.7 % (0.0-1.8) 12/06/20 18:40 Lymph # (Auto) 1.3 K/mm3 (1.2-5.4) 12/06/20 18:40 [place] # (Auto) 0.3 K/mm3 (0.0-0.8) 12/06/20 18:40 Eos # (Auto) 0.2 K/mm3 (0.0-0.4) 12/06/20 18:40 Baso # (Auto) 0.0 K/mm3 (0.0-0.1) 12/06/20 18:40 Seg Neutrophils % 67.3 % (40.0-70.0) 12/06/20 18:40 Seg Neutrophils # 3.9 K/mm3 (1.8-7.7) 12/06/20 18:40 Sodium 139 mmol/L (137-145) 12/06/20 18:40 Potassium 3.8 mmol/L (3.6-5.0) 12/06/20 18:40 Chloride 102.6 mmol/L (98-107) 12/06/20 18:40 Carbon Dioxide 28 mmol/L (22-30) 12/06/20 18:40 Anion Gap 12 mmol/L 12/06/20 18:40 BUN 10 mg/dL (7-17) 12/06/20 18:40 Creatinine 1.0 mg/dL (0.6-1.2) 12/06/20 18:40 Estimated GFR 57 ml/min 12/06/20 18:40 BUN/Creatinine Ratio 10 % 12/06/20 18:40 Glucose 106 mg/dL (65-100) H 12/06/20 18:40 POC Glucose 93 mg/dL (70-105) 12/11/20 08:24 Hemoglobin A1c 5.5 % (4-6) 12/06/20 18:40 Calcium 8.8 mg/dL (8.4-10.2) 12/06/20 18:40 Total Bilirubin 0.30 mg/dL (0.1-1.2) 12/06/20 18:40 AST 18 units/L (5-40) 12/06/20 18:40 ALT 19 units/L (7-56) 12/06/20 18:40 Alkaline Phosphatase 112 units/L (35-129) 12/06/20 18:40 Total Protein 6.8 g/dL (6.3-8.2) 12/06/20 18:40 Albumin 4.0 g/dL (3.9-5) 12/06/20 18:40 Albumin/Globulin Ratio 1.4 % 12/06/20 18:40 Triglycerides 95 mg/dL (2-149) 12/06/20 18:40 Cholesterol 175 mg/dL (50-199) 12/06/20 18:40 LDL Cholesterol Direct 104 mg/dL (50-130) 12/06/20 18:40 HDL Cholesterol 70 mg/dL (40-59) H 12/06/20 18:40 Cholesterol/HDL Ratio 2.50 % 12/06/20 18:40 TSH 31.910 mlU/mL (0.270-4.200) H 12/06/20 18:40 Valproic Acid 44.1 ug/mL (50-100) L 12/10/20 11:52 Last Vital Signs Temp 97.4 F L 12/11/20 22:50 Pulse 80 12/11/20 22:50 Resp 20 12/11/20 22:50 BP 122/74 12/11/20 22:50 Pulse Ox 98 12/11/20 22:50
[2020-12-12] MEDS: DIVALPROEX DR 500 MG TAB PO SCH ×2 (10:42→21:23)
[2020-12-12] MEDS: PANTOPRAZOLE 40 MG TAB PO SCH (10:43)
[2020-12-12] MEDS: NICOTINE 21 MG/24 HR PATCH TD SCH ×2 (10:43→13:10)
[2020-12-12] MEDS: DIVALPROEX DR 250 MG TAB PO SCH ×2 (10:43→21:23)
[2020-12-12] MEDS: ARIPiprazole 15 MG TAB PO SCH (10:48)
[2020-12-12] MEDS: ONDANSETRON 4 MG ODT TAB PO PRN (20:45)
[2020-12-12] MEDS: traZODone 50 MG TAB PO SCH (21:22)
[2020-12-13] MEDS: LEVOTHYROXINE 125 MCG TAB PO SCH (05:32)
--- NOTE | 2020-12-13 07:30 | Progress Note ---
Subjective Date of service: 12/13/20 Principal diagnosis: Schizophrenia Subjective Comment: Psych Nurse: pt spent the evening in bed resting with eyes opened, she is calm and cooperative, c/o of being nauseous, zofran 4mg po given prn, pt is medication compliant, refused snack, had one cup of juice, denies a/v/h, denies si/hi, no distress noted, will continue to monitor for safety. Psych progress Patient seen this morning, patient greeted me she says hi. Patient reported shouting and screaming by everyone in the facility is what is giving her diarrhea. Patient denies any suicidal homicidal ideation, patient also denies any auditory visual hallucination. Patient has been reported to be compliant with medications so far by the nurses. Reason for continued inpatient treatment: Patient in improving, now caring for self, medication non compliance and appears, constantly irritated most times, REVIEW OF SYSTEMS Constitutional: Negative for weight loss ENT: Negative for stridor Respiratory: Negative for cough or hemoptysis All other systems reviewed and are negative MENTAL STATUS EXAMINATION General Appearance and Behavior: Age appropriate, good hygiene, wearing appropriate clothes, good eye contact Cooperation: Participating/engaged, but Guarded Psychomotor Behavior: Psychomotor normal Mood: Angry and irritated Affect and affective range: congruent with stated mood Thought Process: illogical Thought Content: delusions Speech: Normal rate, volume and rhythm Suicidal Ideation: denies Homicidal Ideation: Denies HI Hallucinations: Denies Delusions: verbalizes delusions Impulse Control: Impaired Insight and Judgment: Limited insight and judgment Memory: limited Attention: Normal Orientation: Alert, oriented Assessment and Plan (1) Schizophrenia Current Visit: Yes Status: Acute F32.9 Treatment Plan Patient admitted for inpatient psychiatric evaluation, medication adjustment and close monitoring The patient's behavior, mood, sleep and appetite will be closely monitored. Patient enrolled in individual and group therapeutic sessions and encouraged to attend. Patient provided with a safe and structured environment. Patient's physical health needs will be addressed by the Hospitalist. Hospitalist Consulted Labs including CBC, CMP, Lipid profile and Hemoglobin A1C levels ordered for baseline reference We will start patient on Abilify. Check Valproic level today Social Assessment will be completed and the Booth Manager will work with patient and family to ensure a suitable and safe disposition Medication adjustment will be made as clinically indicated Increased Trazondone 150mg po qhs Will adjust Depakote dose based on Valproic level Usual Wellness Adventist/Preservation: - Start Trazodone 50 mg po QHS & 50 mg po QHS PRN between 10 PM & 2 AM for insomnia - Start Melatonin 5 mg po QHS to promote circadian rhythm - Start [place]-3 for brain health, reduce impulsivity, and as adjunctive treatment for mood disorder, continue upon discharge given overall benefits. - Start B1 prophylaxis with 200 mg po for 5 days The patient agreed on the treatment plan, understood the risk, benefit, alternative treatment, potential consequence of no treatment, and gave informed consent. Estimated days: 4 Post hospital care: primary care provider, psychiatric provider Medications and Allergies Allergies Allergy/AdvReac Type Severity Reaction Status Date / Time chlorpromazine Allergy Unknown Verified 12/06/20 10:35 haloperidol Allergy Unknown Verified 12/06/20 10:35 ketorolac Allergy Unknown Verified 12/06/20 10:35 risperidone Allergy Unknown Verified 12/06/20 10:35 Home Medications Medication Instructions Recorded Confirmed Last Taken Type Divalproex Dr [DepaKOTE DR] 500 mg PO BID 12/06/20 12/06/20 Unknown History Ibuprofen [Motrin 600 MG tab] 600 mg PO TID 12/06/20 12/06/20 Unknown History Levothyroxine [Synthroid] 125 mcg PO QAM 12/06/20 12/06/20 Unknown History Pantoprazole [Protonix] 40 mg PO QDAY 12/06/20 12/06/20 Unknown History Ziprasidone [Geodon] 40 mg PO BID 12/06/20 12/06/20 Unknown History traZODone [Desyrel] 100 mg PO QHS 12/06/20 12/06/20 Unknown History Active Meds: Active Medications Aripiprazole (Aripiprazole 15 Mg Tab) 15 mg PO QDAY [facility] Last Admin: 12/12/20 10:48 Dose: 15 mg Documented by: Bismuth Subsalicylate (Bismuth Subsalicylate 262 Mg/15 Ml Oral Liqd) 524 mg PO Q6H PRN PRN Reason: Indigestion Divalproex Sodium (Divalproex Dr 500 Mg Tab) 500 mg PO BID [facility] Last Admin: 12/12/20 21:23 Dose: 500 mg Documented by: Divalproex Sodium (Divalproex Dr 250 Mg Tab) 250 mg PO BID [facility] Last Admin: 12/12/20 21:23 Dose: 250 mg Documented by: Levothyroxine Sodium (Levothyroxine 125 Mcg Tab) 125 mcg PO 0600 [facility] Last Admin: 12/13/20 05:32 Dose: 125 mcg Documented by: Nicotine (Nicotine 21 Mg/24 Hr Patch) 21 mg TD DAILY [facility] Last Admin: 12/12/20 13:10 Dose: 21 mg Documented by: Ondansetron HCl (Ondansetron 4 Mg Odt Tab) 4 mg PO Q8H PRN PRN Reason: Nausea And Vomiting Last Admin: 12/12/20 20:45 Dose: 4 mg Documented by: Pantoprazole Sodium (Pantoprazole 40 Mg Tab) 40 mg PO QDAY [facility] Last Admin: 12/12/20 10:43 Dose: 40 mg Documented by: Trazodone HCl (Trazodone 50 Mg Tab) 150 mg PO QHS [facility] Last Admin: 12/12/20 21:22 Dose: 150 mg Documented by: Results - Results Labs/Vitals: Laboratory Last Values WBC 5.7 K/mm3 (4.5-11.0) 12/06/20 18:40 RBC 4.64 M/mm3 (3.65-5.03) 12/06/20 18:40 Hgb 14.0 gm/dl (10.1-14.3) 12/06/20 18:40 Hct 42.9 % (30.3-42.9) 12/06/20 18:40 MCV 93 fl (79-97) 12/06/20 18:40 MCH 30 pg (28-32) 12/06/20 18:40 MCHC 33 % (30-34) 12/06/20 18:40 RDW 14.4 % (13.2-15.2) 12/06/20 18:40 Plt Count 256 K/mm3 (140-440) 12/06/20 18:40 Lymph % (Auto) 23.2 % (13.4-35.0) 12/06/20 18:40 [place] % (Auto) 5.4 % (0.0-7.3) 12/06/20 18:40 Eos % (Auto) 3.4 % (0.0-4.3) 12/06/20 18:40 Baso % (Auto) 0.7 % (0.0-1.8) 12/06/20 18:40 Lymph # (Auto) 1.3 K/mm3 (1.2-5.4) 12/06/20 18:40 [place] # (Auto) 0.3 K/mm3 (0.0-0.8) 12/06/20 18:40 Eos # (Auto) 0.2 K/mm3 (0.0-0.4) 12/06/20 18:40 Baso # (Auto) 0.0 K/mm3 (0.0-0.1) 12/06/20 18:40 Seg Neutrophils % 67.3 % (40.0-70.0) 12/06/20 18:40 Seg Neutrophils # 3.9 K/mm3 (1.8-7.7) 12/06/20 18:40 Sodium 139 mmol/L (137-145) 12/06/20 18:40 Potassium 3.8 mmol/L (3.6-5.0) 12/06/20 18:40 Chloride 102.6 mmol/L (98-107) 12/06/20 18:40 Carbon Dioxide 28 mmol/L (22-30) 12/06/20 18:40 Anion Gap 12 mmol/L 12/06/20 18:40 BUN 10 mg/dL (7-17) 12/06/20 18:40 Creatinine 1.0 mg/dL (0.6-1.2) 12/06/20 18:40 Estimated GFR 57 ml/min 12/06/20 18:40 BUN/Creatinine Ratio 10 % 12/06/20 18:40 Glucose 106 mg/dL (65-100) H 12/06/20 18:40 POC Glucose 93 mg/dL (70-105) 12/11/20 08:24 Hemoglobin A1c 5.5 % (4-6) 12/06/20 18:40 Calcium 8.8 mg/dL (8.4-10.2) 12/06/20 18:40 Total Bilirubin 0.30 mg/dL (0.1-1.2) 12/06/20 18:40 AST 18 units/L (5-40) 12/06/20 18:40 ALT 19 units/L (7-56) 12/06/20 18:40 Alkaline Phosphatase 112 units/L (35-129) 12/06/20 18:40 Total Protein 6.8 g/dL (6.3-8.2) 12/06/20 18:40 Albumin 4.0 g/dL (3.9-5) 12/06/20 18:40 Albumin/Globulin Ratio 1.4 % 12/06/20 18:40 Triglycerides 95 mg/dL (2-149) 12/06/20 18:40 Cholesterol 175 mg/dL (50-199) 12/06/20 18:40 LDL Cholesterol Direct 104 mg/dL (50-130) 12/06/20 18:40 HDL Cholesterol 70 mg/dL (40-59) H 12/06/20 18:40 Cholesterol/HDL Ratio 2.50 % 12/06/20 18:40 TSH 31.910 mlU/mL (0.270-4.200) H 12/06/20 18:40 Valproic Acid 44.1 ug/mL (50-100) L 12/10/20 11:52 Last Vital Signs Temp 98.5 F 12/12/20 22:00 Pulse 74 12/12/20 22:00 Resp 15 12/12/20 22:00 BP 111/63 12/12/20 22:00 Pulse Ox 97 12/12/20 22:00
[2020-12-13] MEDS: NICOTINE 21 MG/24 HR PATCH TD SCH (10:19)
[2020-12-13] MEDS: DIVALPROEX DR 250 MG TAB PO SCH ×2 (10:19→21:07)
[2020-12-13] MEDS: ARIPiprazole 15 MG TAB PO SCH (10:19)
[2020-12-13] MEDS: DIVALPROEX DR 500 MG TAB PO SCH ×2 (10:19→21:04)
[2020-12-13] MEDS: PANTOPRAZOLE 40 MG TAB PO SCH (10:19)
[2020-12-13] MEDS: ONDANSETRON 4 MG ODT TAB PO PRN (21:03)
[2020-12-13] MEDS: traZODone 50 MG TAB PO SCH (21:04)
[2020-12-14] MEDS: LEVOTHYROXINE 125 MCG TAB PO SCH (05:27)
--- NOTE | 2020-12-14 07:34 | Progress Note ---
Subjective Date of service: 12/14/20 Principal diagnosis: Schizophrenia Subjective Comment: Psych Nurse: Last evening the patient spent part of her time in her room but more in the activity room. She complains of the food she had for dinner and asks tech for something else. Tech informed patient that the dining room was closed. Patient was unhappy. She exhibits this behavior with most of her meals. She wants something different after her food arrives. Patient denies si/hi/ah/vh. She took a shower last evening. She was medication compliant. Will continue to monitor patient for safety. Psych progress Patient seen in the activity room this morning, appears slightly irritated but cooperative with exam this morning. Patient reports she is doing good, reports sleeping well, denies any auditory visual hallucinations. Patient denies suicidal homicidal ideation. Hypoxia explosive behavior reported by the nurses, though nurse did report concern of patient being overly demanding otherwise no other acute symptoms reported. Reason for continued inpatient treatment: Patient in improving, now caring for self, medication non compliance and appears, constantly irritated most times, REVIEW OF SYSTEMS Constitutional: Negative for weight loss ENT: Negative for stridor Respiratory: Negative for cough or hemoptysis All other systems reviewed and are negative MENTAL STATUS EXAMINATION General Appearance and Behavior: Age appropriate, good hygiene, wearing appropriate clothes, good eye contact Cooperation: Participating/engaged, but Guarded Psychomotor Behavior: Psychomotor normal Mood: Angry and irritated Affect and affective range: congruent with stated mood Thought Process: illogical Thought Content: delusions Speech: Normal rate, volume and rhythm Suicidal Ideation: denies Homicidal Ideation: Denies HI Hallucinations: Denies Delusions: verbalizes delusions Impulse Control: Impaired Insight and Judgment: Limited insight and judgment Memory: limited Attention: Normal Orientation: Alert, oriented Assessment and Plan (1) Schizophrenia Current Visit: Yes Status: Acute F32.9 Treatment Plan Patient admitted for inpatient psychiatric evaluation, medication adjustment and close monitoring The patient's behavior, mood, sleep and appetite will be closely monitored. Patient enrolled in individual and group therapeutic sessions and encouraged to attend. Patient provided with a safe and structured environment. Patient's physical health needs will be addressed by the Hospitalist. Hospitalist Consulted Labs including CBC, CMP, Lipid profile and Hemoglobin A1C levels ordered for baseline reference We will start patient on Abilify. Check Valproic level today Social Assessment will be completed and the Sub Assembly Team Worker will work with patient and family to ensure a suitable and safe disposition Medication adjustment will be made as clinically indicated Increased Trazondone 150mg po qhs Will adjust Depakote dose based on Valproic level Usual Wellness Christianity/Preservation: - Start Trazodone 50 mg po QHS & 50 mg po QHS PRN between 10 PM & 2 AM for insomnia - Start Melatonin 5 mg po QHS to promote circadian rhythm - Start [place]-3 for brain health, reduce impulsivity, and as adjunctive treatment for mood disorder, continue upon discharge given overall benefits. - Start B1 prophylaxis with 200 mg po for 5 days The patient agreed on the treatment plan, understood the risk, benefit, alternative treatment, potential consequence of no treatment, and gave informed consent. Estimated days: 2 Post hospital care: primary care provider, psychiatric provider Medications and Allergies Allergies Allergy/AdvReac Type Severity Reaction Status Date / Time chlorpromazine Allergy Unknown Verified 12/06/20 10:35 haloperidol Allergy Unknown Verified 12/06/20 10:35 ketorolac Allergy Unknown Verified 12/06/20 10:35 risperidone Allergy Unknown Verified 12/06/20 10:35 Home Medications Medication Instructions Recorded Confirmed Last Taken Type Divalproex Dr [DepaKOTE DR] 500 mg PO BID 12/06/20 12/06/20 Unknown History Ibuprofen [Motrin 600 MG tab] 600 mg PO TID 12/06/20 12/06/20 Unknown History Levothyroxine [Synthroid] 125 mcg PO QAM 12/06/20 12/06/20 Unknown History Pantoprazole [Protonix] 40 mg PO QDAY 12/06/20 12/06/20 Unknown History Ziprasidone [Geodon] 40 mg PO BID 12/06/20 12/06/20 Unknown History traZODone [Desyrel] 100 mg PO QHS 12/06/20 12/06/20 Unknown History Active Meds: Active Medications Aripiprazole (Aripiprazole 15 Mg Tab) 15 mg PO QDAY [facility] Last Admin: 12/13/20 10:19 Dose: 15 mg Documented by: Bismuth Subsalicylate (Bismuth Subsalicylate 262 Mg/15 Ml Oral Liqd) 524 mg PO Q6H PRN PRN Reason: Indigestion Divalproex Sodium (Divalproex Dr 500 Mg Tab) 500 mg PO BID [facility] Last Admin: 12/13/20 21:04 Dose: 500 mg Documented by: Divalproex Sodium (Divalproex Dr 250 Mg Tab) 250 mg PO BID [facility] Last Admin: 12/13/20 21:07 Dose: 250 mg Documented by: Levothyroxine Sodium (Levothyroxine 125 Mcg Tab) 125 mcg PO 0600 [facility] Last Admin: 12/14/20 05:27 Dose: 125 mcg Documented by: Nicotine (Nicotine 21 Mg/24 Hr Patch) 21 mg TD DAILY [facility] Last Admin: 12/13/20 10:19 Dose: 21 mg Documented by: Ondansetron HCl (Ondansetron 4 Mg Odt Tab) 4 mg PO Q8H PRN PRN Reason: Nausea And Vomiting Last Admin: 12/13/20 21:03 Dose: 4 mg Documented by: Pantoprazole Sodium (Pantoprazole 40 Mg Tab) 40 mg PO QDAY [facility] Last Admin: 12/13/20 10:19 Dose: 40 mg Documented by: Trazodone HCl (Trazodone 50 Mg Tab) 150 mg PO QHS [facility] Last Admin: 12/13/20 21:04 Dose: 150 mg Documented by: Results - Results Labs/Vitals: Laboratory Last Values WBC 5.7 K/mm3 (4.5-11.0) 12/06/20 18:40 RBC 4.64 M/mm3 (3.65-5.03) 12/06/20 18:40 Hgb 14.0 gm/dl (10.1-14.3) 12/06/20 18:40 Hct 42.9 % (30.3-42.9) 12/06/20 18:40 MCV 93 fl (79-97) 12/06/20 18:40 MCH 30 pg (28-32) 12/06/20 18:40 MCHC 33 % (30-34) 12/06/20 18:40 RDW 14.4 % (13.2-15.2) 12/06/20 18:40 Plt Count 256 K/mm3 (140-440) 12/06/20 18:40 Lymph % (Auto) 23.2 % (13.4-35.0) 12/06/20 18:40 [place] % (Auto) 5.4 % (0.0-7.3) 12/06/20 18:40 Eos % (Auto) 3.4 % (0.0-4.3) 12/06/20 18:40 Baso % (Auto) 0.7 % (0.0-1.8) 12/06/20 18:40 Lymph # (Auto) 1.3 K/mm3 (1.2-5.4) 12/06/20 18:40 [place] # (Auto) 0.3 K/mm3 (0.0-0.8) 12/06/20 18:40 Eos # (Auto) 0.2 K/mm3 (0.0-0.4) 12/06/20 18:40 Baso # (Auto) 0.0 K/mm3 (0.0-0.1) 12/06/20 18:40 Seg Neutrophils % 67.3 % (40.0-70.0) 12/06/20 18:40 Seg Neutrophils # 3.9 K/mm3 (1.8-7.7) 12/06/20 18:40 Sodium 139 mmol/L (137-145) 12/06/20 18:40 Potassium 3.8 mmol/L (3.6-5.0) 12/06/20 18:40 Chloride 102.6 mmol/L (98-107) 12/06/20 18:40 Carbon Dioxide 28 mmol/L (22-30) 12/06/20 18:40 Anion Gap 12 mmol/L 12/06/20 18:40 BUN 10 mg/dL (7-17) 12/06/20 18:40 Creatinine 1.0 mg/dL (0.6-1.2) 12/06/20 18:40 Estimated GFR 57 ml/min 12/06/20 18:40 BUN/Creatinine Ratio 10 % 12/06/20 18:40 Glucose 106 mg/dL (65-100) H 12/06/20 18:40 POC Glucose 93 mg/dL (70-105) 12/11/20 08:24 Hemoglobin A1c 5.5 % (4-6) 12/06/20 18:40 Calcium 8.8 mg/dL (8.4-10.2) 12/06/20 18:40 Total Bilirubin 0.30 mg/dL (0.1-1.2) 12/06/20 18:40 AST 18 units/L (5-40) 12/06/20 18:40 ALT 19 units/L (7-56) 12/06/20 18:40 Alkaline Phosphatase 112 units/L (35-129) 12/06/20 18:40 Total Protein 6.8 g/dL (6.3-8.2) 12/06/20 18:40 Albumin 4.0 g/dL (3.9-5) 12/06/20 18:40 Albumin/Globulin Ratio 1.4 % 12/06/20 18:40 Triglycerides 95 mg/dL (2-149) 12/06/20 18:40 Cholesterol 175 mg/dL (50-199) 12/06/20 18:40 LDL Cholesterol Direct 104 mg/dL (50-130) 12/06/20 18:40 HDL Cholesterol 70 mg/dL (40-59) H 12/06/20 18:40 Cholesterol/HDL Ratio 2.50 % 12/06/20 18:40 TSH 31.910 mlU/mL (0.270-4.200) H 12/06/20 18:40 Valproic Acid 44.1 ug/mL (50-100) L 12/10/20 11:52 Last Vital Signs Temp 97.4 F L 12/13/20 21: Pulse 67 12/13/20 21:22 Resp 18 12/13/20 21:22 BP 99/61 12/13/20 21:22 Pulse Ox 95 12/13/20 21:22
[2020-12-14] MEDS: ONDANSETRON 4 MG ODT TAB PO PRN ×2 (07:58→19:37)
[2020-12-14] MEDS: DIVALPROEX DR 500 MG TAB PO SCH ×2 (10:09→21:16)
[2020-12-14] MEDS: ARIPiprazole 15 MG TAB PO SCH (10:09)
[2020-12-14] MEDS: DIVALPROEX DR 250 MG TAB PO SCH ×2 (10:09→21:16)
[2020-12-14] MEDS: PANTOPRAZOLE 40 MG TAB PO SCH (10:09)
[2020-12-14] MEDS: NICOTINE 21 MG/24 HR PATCH TD SCH (10:09)
[2020-12-14] MEDS: traZODone 50 MG TAB PO SCH (21:17)
[2020-12-15] MEDS: LEVOTHYROXINE 125 MCG TAB PO SCH (05:36)
--- NOTE | 2020-12-15 08:02 | Progress Note ---
Subjective Date of service: 12/15/20 Principal diagnosis: Schizophrenia Subjective Comment: Psych Nurse: pt spent the evening in activity room watching television, alert and orientedx3, calm and cooperative, able to make needs known, refused bedtime snack, requested for something different, chicken noodle soup and cracker offered to pt, consumed 75%. zofran 4mg po given for nausea as requested by pt; denies si/hi, denies a/v/h, no behavioral issue, no episode of vomiting, had one loose stool, medication compliant, no distress noted, will continue to monitor for safety. Psych progress Patient describes a good and stable mood, denies being depressed or excessively nervous. Patient eats and sleeps well. Patient denies panic attacks, recurrent nightmares or flashbacks. Patient denies symptoms suggestive of OCD or PTSD. Patient denies hallucinations, paranoia, thought interference and no features suggestive of hypomania or valarie. Patiently completely denies suicidal or homicidal thoughts. Reason for continued inpatient treatment: Patient in improving, now caring for self, medication non compliance and appears, constantly irritated most times, REVIEW OF SYSTEMS Constitutional: Negative for weight loss ENT: Negative for stridor Respiratory: Negative for cough or hemoptysis All other systems reviewed and are negative MENTAL STATUS EXAMINATION General Appearance and Behavior: Age appropriate, good hygiene, wearing appropriate clothes, good eye contact Cooperation: Participating/engaged, but Guarded Psychomotor Behavior: Psychomotor normal Mood: Angry and irritated Affect and affective range: congruent with stated mood Thought Process: illogical Thought Content: delusions Speech: Normal rate, volume and rhythm Suicidal Ideation: denies Homicidal Ideation: Denies HI Hallucinations: Denies Delusions: verbalizes delusions Impulse Control: Impaired Insight and Judgment: Limited insight and judgment Memory: limited Attention: Normal Orientation: Alert, oriented Assessment and Plan (1) Schizophrenia Current Visit: Yes Status: Acute F32.9 Treatment Plan Patient admitted for inpatient psychiatric evaluation, medication adjustment and close monitoring The patient's behavior, mood, sleep and appetite will be closely monitored. Patient enrolled in individual and group therapeutic sessions and encouraged to attend. Patient provided with a safe and structured environment. Patient's physical health needs will be addressed by the Hospitalist. Hospit alist Consulted Labs including CBC, CMP, Lipid profile and Hemoglobin A1C levels ordered for baseline reference We will start patient on Abilify. Check Valproic level today Social Assessment will be completed and the [place] Repairer will work with patient and family to ensure a suitable and safe disposition Medication adjustment will be made as clinically indicated Will adjust Depakote dose based on Valproic level Usual Wellness Pentecostalism/Preservation: - Start Trazodone 50 mg po QHS & 50 mg po QHS PRN between 10 PM & 2 AM for insomnia - Start Melatonin 5 mg po QHS to promote circadian rhythm - Start [place]-3 for brain health, reduce impulsivity, and as adjunctive treatment for mood disorder, continue upon discharge given overall benefits. - Start B1 prophylaxis with 200 mg po for 5 days The patient agreed on the treatment plan, understood the risk, benefit, alternative treatment, potential consequence of no treatment, and gave informed consent. Estimated days: 2 Post hospital care: primary care provider, psychiatric provider Medications and Allergies Allergies Allergy/AdvReac Type Severity Reaction Status Date / Time chlorpromazine Allergy Unknown Verified 12/06/20 10:35 haloperidol Allergy Unknown Verified 12/06/20 10:35 ketorolac Allergy Unknown Verified 12/06/20 10:35 risperidone Allergy Unknown Verified 12/06/20 10:35 Home Medications Medication Instructions Recorded Confirmed Last Taken Type Divalproex Dr [DepaKOTE DR] 500 mg PO BID 12/06/20 12/06/20 Unknown History Ibuprofen [Motrin 600 MG tab] 600 mg PO TID 12/06/20 12/06/20 Unknown History Levothyroxine [Synthroid] 125 mcg PO QAM 12/06/20 12/06/20 Unknown History Pantoprazole [Protonix] 40 mg PO QDAY 12/06/20 12/06/20 Unknown History Ziprasidone [Geodon] 40 mg PO BID 12/06/20 12/06/20 Unknown History traZODone [Desyrel] 100 mg PO QHS 12/06/20 12/06/20 Unknown History Active Meds: Active Medications Aripiprazole (Aripiprazole 15 Mg Tab) 15 mg PO QDAY [facility] Last Admin: 12/14/20 10:09 Dose: 15 mg Documented by: Bismuth Subsalicylate (Bismuth Subsalicylate 262 Mg/15 Ml Oral Liqd) 524 mg PO Q6H PRN PRN Reason: Indigestion Last Admin: 12/14/20 17:58 Dose: 524 mg Documented by: Divalproex Sodium (Divalproex Dr 500 Mg Tab) 500 mg PO BID [facility] Last Admin: 12/14/20 21:16 Dose: 500 mg Documented by: Divalproex Sodium (Divalproex Dr 250 Mg Tab) 250 mg PO BID [facility] Last Admin: 12/14/20 21:16 Dose: 250 mg Documented by: Levothyroxine Sodium (Levothyroxine 125 Mcg Tab) 125 mcg PO 0600 [facility] Last Admin: 12/15/20 05:36 Dose: 125 mcg Documented by: Nicotine (Nicotine 21 Mg/24 Hr Patch) 21 mg TD DAILY [facility] Last Admin: 12/14/20 10:09 Dose: 21 mg Documented by: Ondansetron HCl (Ondansetron 4 Mg Odt Tab) 4 mg PO Q8H PRN PRN Reason: Nausea And Vomiting Last Admin: 12/14/20 19:37 Dose: 4 mg Documented by: Pantoprazole Sodium (Pantoprazole 40 Mg Tab) 40 mg PO QDAY [facility] Last Admin: 12/14/20 10:09 Dose: 40 mg Documented by: Trazodone HCl (Trazodone 50 Mg Tab) 150 mg PO QHS [facility] Last Admin: 12/14/20 21:17 Dose: 150 mg Documented by: Results - Results Labs/Vitals: Laboratory Last Values WBC 5.7 K/mm3 (4.5-11.0) 12/06/20 18:40 RBC 4.64 M/mm3 (3.65-5.03) 12/06/20 18:40 Hgb 14.0 gm/dl (10.1-14.3) 12/06/20 18:40 Hct 42.9 % (30.3-42.9) 12/06/20 18:40 MCV 93 fl (79-97) 12/06/20 18:40 MCH 30 pg (28-32) 12/06/20 18:40 MCHC 33 % (30-34) 12/06/20 18:40 RDW 14.4 % (13.2-15.2) 12/06/20 18:40 Plt Count 256 K/mm3 (140-440) 12/06/20 18:40 Lymph % (Auto) 23.2 % (13.4-35.0) 12/06/20 18:40 [place] % (Auto) 5.4 % (0.0-7.3) 12/06/20 18:40 Eos % (Auto) 3.4 % (0.0-4.3) 12/06/20 18:40 Baso % (Auto) 0.7 % (0.0-1.8) 12/06/20 18:40 Lymph # (Auto) 1.3 K/mm3 (1.2-5.4) 12/06/20 18:40 [place] # (Auto) 0.3 K/mm3 (0.0-0.8) 12/06/20 18:40 Eos # (Auto) 0.2 K/mm3 (0.0-0.4) 12/06/20 18:40 Baso # (Auto) 0.0 K/mm3 (0.0-0.1) 12/06/20 18:40 Seg Neutrophils % 67.3 % (40.0-70.0) 12/06/20 18:40 Seg Neutrophils # 3.9 K/mm3 (1.8-7.7) 12/06/20 18:40 Sodium 139 mmol/L (137-145) 12/06/20 18:40 Potassium 3.8 mmol/L (3.6-5.0) 12/06/20 18:40 Chloride 102.6 mmol/L (98-107) 12/06/20 18:40 Carbon Dioxide 28 mmol/L (22-30) 12/06/20 18:40 Anion Gap 12 mmol/L 12/06/20 18:40 BUN 10 mg/dL (7-17) 12/06/20 18:40 Creatinine 1.0 mg/dL (0.6-1.2) 12/06/20 18:40 Estimated GFR 57 ml/min 12/06/20 18:40 BUN/Creatinine Ratio 10 % 12/06/20 18:40 Glucose 106 mg/dL (65-100) H 12/06/20 18:40 POC Glucose 93 mg/dL (70-105) 12/11/20 08:24 Hemoglobin A1c 5.5 % (4-6) 12/06/20 18:40 Calcium 8.8 mg/dL (8.4-10.2) 12/06/20 18:40 Total Bilirubin 0.30 mg/dL (0.1-1.2) 12/06/20 18:40 AST 18 units/L (5-40) 12/06/20 18:40 ALT 19 units/L (7-56) 12/06/20 18:40 Alkaline Phosphatase 112 units/L (35-129) 12/06/20 18:40 Total Protein 6.8 g/dL (6.3-8.2) 12/06/20 18:40 Albumin 4.0 g/dL (3.9-5) 12/06/20 18:40 Albumin/Globulin Ratio 1.4 % 12/06/20 18:40 Triglycerides 95 mg/dL (2-149) 12/06/20 18:40 Cholesterol 175 mg/dL (50-199) 12/06/20 18:40 LDL Cholesterol Direct 104 mg/dL (50-130) 12/06/20 18:40 HDL Cholesterol 70 mg/dL (40-59) H 12/06/20 18:40 Cholesterol/HDL Ratio 2.50 % 12/06/20 18:40 TSH 31.910 mlU/mL (0.270-4.200) H 12/06/20 18:40 Valproic Acid 44.1 ug/mL (50-100) L 12/10/20 11:52 Last Vital Signs Temp 97.9 F 12/14/20 22:00 Pulse 91 H 12/14/20 22:00 Resp 16 12/14/20 22:00 BP 99/63 12/14/20 22:00 Pulse Ox 96 12/14/20 22:00
[2020-12-15] MEDS: PANTOPRAZOLE 40 MG TAB PO SCH (09:01)
[2020-12-15] MEDS: ARIPiprazole 15 MG TAB PO SCH (09:01)
[2020-12-15] MEDS: NICOTINE 21 MG/24 HR PATCH TD SCH (09:01)
[2020-12-15] MEDS: DIVALPROEX DR 500 MG TAB PO SCH ×2 (09:01→21:33)
[2020-12-15] MEDS: DIVALPROEX DR 250 MG TAB PO SCH ×2 (09:01→21:33)
[2020-12-15] MEDS: traZODone 50 MG TAB PO SCH (21:33)
[2020-12-16] MEDS: LEVOTHYROXINE 125 MCG TAB PO SCH (05:10)
--- NOTE | 2020-12-16 08:29 | Discharge Summary ---
Providers - Providers Date of Admission: 12/06/20 09:20 Date of discharge: 12/16/20 Attending physician: ZEN DO MD 12/06/20 09:20 Consult to Physician [CONS] Routine Comment: Consulting Provider: MULU MENSAH Physician Instructions: Reason For Exam: manage medical conditions Primary care physician: SENIOR HR GENERALIST Hospitalization Reason for admission: psychosis Admitting Diagnosis: F20.9 - SCHIZOPHRENIA, UNSPECIFIED Hospital course: The patient was provided inpatient psychiatric treatment with safe and supportive care, medication adjustment, adverse effect monitoring, medical evaluations, medical treatments, assessment and psycho-education. The patient's mood, cognition, behavior, moral support are improved and stabilized. St the time of discharge, the patient had no endangering behavior and no debilitating adverse effects. The patient agreed on potential consequences of no treatment and gave informed consent. Disposition: DC-01 TO HOME OR SELFCARE Time spent for discharge: 38 Allergies/Adverse Reactions: Allergies chlorpromazine Allergy (Verified 12/06/20 10:35) Unknown haloperidol Allergy (Verified 12/06/20 10:35) Unknown ketorolac Allergy (Verified 12/06/20 10:35) Unknown risperidone Allergy (Verified 12/06/20 10:35) Unknown Vital Signs: Last Vital Signs Temp 97.2 F L 12/15/20 20:47 Pulse 69 12/15/20 20:47 Resp 16 12/15/20 20:47 BP 107/61 12/15/20 20:47 Pulse Ox 93 12/15/20 20:47 Last Lab: Laboratory Last Values WBC 5.7 K/mm3 (4.5-11.0) 12/06/20 18:40 RBC 4.64 M/mm3 (3.65-5.03) 12/06/20 18:40 Hgb 14.0 gm/dl (10.1-14.3) 12/06/20 18:40 Hct 42.9 % (30.3-42.9) 12/06/20 18:40 MCV 93 fl (79-97) 12/06/20 18:40 MCH 30 pg (28-32) 12/06/20 18:40 MCHC 33 % (30-34) 12/06/20 18:40 RDW 14.4 % (13.2-15.2) 12/06/20 18:40 Plt Count 256 K/mm3 (140-440) 12/06/20 18:40 Lymph % (Auto) 23.2 % (13.4-35.0) 12/06/20 18:40 [place] % (Auto) 5.4 % (0.0-7.3) 12/06/20 18:40 Eos % (Auto) 3.4 % (0.0-4.3) 12/06/20 18:40 Baso % (Auto) 0.7 % (0.0-1.8) 12/06/20 18:40 Lymph # (Auto) 1.3 K/mm3 (1.2-5.4) 12/06/20 18:40 [place] # (Auto) 0.3 K/mm3 (0.0-0.8) 12/06/20 18:40 Eos # (Auto) 0.2 K/mm3 (0.0-0.4) 12/06/20 18:40 Baso # (Auto) 0.0 K/mm3 (0.0-0.1) 12/06/20 18:40 Seg Neutrophils % 67.3 % (40.0-70.0) 12/06/20 18:40 Seg Neutrophils # 3.9 K/mm3 (1.8-7.7) 12/06/20 18:40 Sodium 139 mmol/L (137-145) 12/06/20 18:40 Potassium 3.8 mmol/L (3.6-5.0) 12/06/20 18:40 Chloride 102.6 mmol/L (98-107) 12/06/20 18:40 Carbon Dioxide 28 mmol/L (22-30) 12/06/20 18:40 Anion Gap 12 mmol/L 12/06/20 18:40 BUN 10 mg/dL (7-17) 12/06/20 18:40 Creatinine 1.0 mg/dL (0.6-1.2) 12/06/20 18:40 Estimated GFR 57 ml/min 12/06/20 18:40 BUN/Creatinine Ratio 10 % 12/06/20 18:40 Glucose 106 mg/dL (65-100) H 12/06/20 18:40 POC Glucose 93 mg/dL (70-105) 12/11/20 08:24 Hemoglobin A1c 5.5 % (4-6) 12/06/20 18:40 Calcium 8.8 mg/dL (8.4-10.2) 12/06/20 18:40 Total Bilirubin 0.30 mg/dL (0.1-1.2) 12/06/20 18:40 AST 18 units/L (5-40) 12/06/20 18:40 ALT 19 units/L (7-56) 12/06/20 18:40 Alkaline Phosphatase 112 units/L (35-129) 12/06/20 18:40 Total Protein 6.8 g/dL (6.3-8.2) 12/06/20 18:40 Albumin 4.0 g/dL (3.9-5) 12/06/20 18:40 Albumin/Globulin Ratio 1.4 % 12/06/20 18:40 Triglycerides 95 mg/dL (2-149) 12/06/20 18:40 Cholesterol 175 mg/dL (50-199) 12/06/20 18:40 LDL Cholesterol Direct 104 mg/dL (50-130) 12/06/20 18:40 HDL Cholesterol 70 mg/dL (40-59) H 12/06/20 18:40 Cholesterol/HDL Ratio 2.50 % 12/06/20 18:40 TSH 31.910 mlU/mL (0.270-4.200) H 12/06/20 18:40 Valproic Acid 133.2 ug/mL (50-100) H 12/15/20 08:54 Core Measure Documentation - Palliative Care Palliative Care/ Comfort Measures: Not Applicable - Core Measures Any of the following diagnoses?: none Exam - Constitutional Vitals: Temp Pulse Resp BP Pulse Ox 97.2 F L 69 16 107/61 93 12/15/20 20:47 12/15/20 20:47 12/15/20 20:47 12/15/20 20:47 12/15/20 20:47 General appearance: Present: no acute distress - EENT Eyes: Present: PERRL, EOM intact ENT: hearing intact, clear oral mucosa - Neck Neck: Present: supple, normal ROM - Respiratory Respiratory effort: normal Plan Activity: advance as tolerated Weight Bearing Status: Weight Bear as Tolerated Care Plan Goals: Maintain good and stable mental health Plan of Treatment: The patient should be compliant with medications, not to use drugs, and not to drink alcohol. The patient understands that if suicidal ideas, homicidal ideas or any endangering feeling arise, the patient should seek assistance including, but not limited to crisis hotline, and emergency room. Follow up with: PRIMARY CARE, [Primary Care Provider] - 7 Days Prescriptions: traZODone [Desyrel] 100 mg PO QHS #30 ARIPiprazole [Abilify TAB] 15 mg PO QDAY #30 tablet Divalproex [Yessy Friedman] 500 mg PO BID #[address] [Yessy Friedman] 250 mg PO BID #60 tablet Nicotine [Habitrol] 21 mg TD DAILY #30 patch
[2020-12-16] MEDS: DIVALPROEX DR 250 MG TAB PO SCH ×2 (10:15→23:42)
[2020-12-16] MEDS: PANTOPRAZOLE 40 MG TAB PO SCH (10:15)
[2020-12-16] MEDS: NICOTINE 21 MG/24 HR PATCH TD SCH (10:15)
[2020-12-16] MEDS: DIVALPROEX DR 500 MG TAB PO SCH ×2 (10:15→23:42)
[2020-12-16] MEDS: ARIPiprazole 15 MG TAB PO SCH (10:15)
[2020-12-16] MEDS: traZODone 50 MG TAB PO SCH (23:42)
[2020-12-17] MEDS: LEVOTHYROXINE 125 MCG TAB PO SCH (06:30)
--- NOTE | 2020-12-17 08:07 | Progress Note ---
Subjective Date of service: 12/17/20 Principal diagnosis: Schizophrenia Subjective Comment: Per nurse note: Discharge address in [facility] [place] not correct and pt couldn't be dropped off. Ambulance personnel brought pt back to the Unit. notified. JACOB notified. Discharge undone. Bedtime medications offered, but refused. Pt in bed resting. No acute distress observed. Will continue to monitor.. The patient is sitting in the dayroom. She is a/o x 3. She says she was disch arged yesterday, but had to come back to the hospital. She says they "knocked on the door then came back. She says I don't know why they brought me back." The patient denies SI/HI or hallucinations of any kind. Reason for continued inpatient treatment: The patient is clear from a psych standpoint. The patient will discharge once the public health social worker is in and they can verify the correct address to ensue a safe discharge. REVIEW OF SYSTEMS Constitutional: Negative for weight loss ENT: Negative for stridor Respiratory: Negative for cough or hemoptysis All other systems reviewed and are negative MENTAL STATUS EXAMINATION General Appearance and Behavior: Age appropriate, good hygiene, wearing appropriate clothes, good eye contact Cooperation: Participating/engaged, but Guarded Psychomotor Behavior: Psychomotor normal Mood: depressed Affect and affective range: congruent with stated mood Thought Process: goal directed Thought Content: none Speech: Normal rate, volume and rhythm Suicidal Ideation: denies Homicidal Ideation: Denies Hallucinations: Denies Delusions: None elicited Impulse Control: Impaired Insight and Judgment: Limited insight and judgment Memory: limited Attention: Normal Orientation: Alert Assessment and Plan (1) Schizophrenia Current Visit: Yes Status: Acute F32.9 Treatment Plan Patient admitted for inpatient psychiatric evaluation, medication adjustment and close monitoring The patient's behavior, mood, sleep and appetite will be closely monitored. Patient enrolled in individual and group therapeutic sessions and encouraged to attend. Patient provided with a safe and structured environment. Patient's physical health needs will be addressed by the Hospitalist. Hospitalist Consulted Labs including CBC, CMP, Lipid profile and Hemoglobin A1C levels ordered for baseline reference Social Assessment will be completed and the [employer] Admin will work with patient and family to ensure a suitable and safe disposition Medication adjustment will be made as clinically indicated No changes made today Usual Wellness Latter Day/Preservation: - Start Trazodone 50 mg po QHS & 50 mg po QHS PRN between 10 PM & 2 AM for insomnia - Start Melatonin 5 mg po QHS to promote circadian rhythm - Start [place]-3 for brain health, reduce impulsivity, and as adjunctive treatment for mood disorder, continue upon discharge given overall benefits. - Start B1 prophylaxis with 200 mg po for 5 days The patient agreed on the treatment plan, understood the risk, benefit, alternative treatment, potential consequence of no treatment, and gave informed consent. Estimated days: 3 Post hospital care: primary care provider, psychiatric provider Medications and Allergies Allergies Allergy/AdvReac Type Severity Reaction Status Date / Time chlorpromazine Allergy Unknown Verified 12/06/20 10:35 haloperidol Allergy Unknown Verified 12/06/20 10:35 ketorolac Allergy Unknown Verified 12/06/20 10:35 risperidone Allergy Unknown Verified 12/06/20 10:35 Home Medications Medication Instructions Recorded Confirmed Last Taken Type Ibuprofen [Motrin 600 MG tab] 600 mg PO TID 12/06/20 12/06/20 Unknown History Levothyroxine [Synthroid] 125 mcg PO QAM 12/06/20 12/06/20 Unknown History Pantoprazole [Protonix TAB] 40 mg PO QDAY 12/06/20 12/06/20 Unknown History ARIPiprazole [Abilify TAB] 15 mg PO QDAY #30 tablet 12/16/20 Unknown Rx Divalproex [Yessy Friedman] 250 mg PO BID #60 tablet 12/16/20 Unknown Rx Divalproex [Yessy Friedman] 500 mg PO BID #60 12/16/20 Unknown Rx Nicotine [Habitrol] 21 mg TD DAILY #30 patch 12/16/20 Unknown Rx traZODone [Desyrel] 100 mg PO QHS #30 12/16/20 Unknown Rx Active Meds: Active Medications Aripiprazole (Aripiprazole 15 Mg Tab) 15 mg PO QDAY [facility] Last Admin: 12/16/20 10:15 Dose: 15 mg Documented by: Bismuth Subsalicylate (Bismuth Subsalicylate 262 Mg/15 Ml Oral Liqd) 524 mg PO Q6H PRN PRN Reason: Indigestion Last Admin: 12/14/20 17:58 Dose: 524 mg Documented by: Divalproex Sodium (Divalproex Dr 500 Mg Tab) 500 mg PO BID [facility] Last Admin: 12/16/20 23:42 Dose: Not Given Documented by: Divalproex Sodium (Divalproex Dr 250 Mg Tab) 250 mg PO BID [facility] Last Admin: 12/16/20 23:42 Dose: Not Given Documented by: Levothyroxine Sodium (Levothyroxine 125 Mcg Tab) 125 mcg PO 0600 [facility] Last Admin: 12/17/20 06:30 Dose: 125 mcg Documented by: Nicotine (Nicotine 21 Mg/24 Hr Patch) 21 mg TD DAILY [facility] Last Admin: 12/16/20 10:15 Dose: 21 mg Documented by: Ondansetron HCl (Ondansetron 4 Mg Odt Tab) 4 mg PO Q8H PRN PRN Reason: Nausea And Vomiting Last Admin: 12/14/20 19:37 Dose: 4 mg Documented by: Pantoprazole Sodium (Pantoprazole 40 Mg Tab) 40 mg PO QDAY [facility] Last Admin: 12/16/20 10:15 Dose: 40 mg Documented by: Trazodone HCl (Trazodone 50 Mg Tab) 100 mg PO QHS [facility] Last Admin: 12/16/20 23:42 Dose: Not Given Documented by: Results - Results Labs/Vitals: Laboratory Last Values WBC 5.7 K/mm3 (4.5-11.0) 12/06/20 18:40 RBC 4.64 M/mm3 (3.65-5.03) 12/06/20 18:40 Hgb 14.0 gm/dl (10.1-14.3) 12/06/20 18:40 Hct 42.9 % (30.3-42.9) 12/06/20 18:40 MCV 93 fl (79-97) 12/06/20 18:40 MCH 30 pg (28-32) 12/06/20 18:40 MCHC 33 % (30-34) 12/06/20 18:40 RDW 14.4 % (13.2-15.2) 12/06/20 18:40 Plt Count 256 K/mm3 (140-440) 12/06/20 18:40 Lymph % (Auto) 23.2 % (13.4-35.0) 12/06/20 18:40 [place] % (Auto) 5.4 % (0.0-7.3) 12/06/20 18:40 Eos % (Auto) 3.4 % (0.0-4.3) 12/06/20 18:40 Baso % (Auto) 0.7 % (0.0-1.8) 12/06/20 18:40 Lymph # (Auto) 1.3 K/mm3 (1.2-5.4) 12/06/20 18:40 [place] # (Auto) 0.3 K/mm3 (0.0-0.8) 12/06/20 18:40 Eos # (Auto) 0.2 K/mm3 (0.0-0.4) 12/06/20 18:40 Baso # (Auto) 0.0 K/mm3 (0.0-0.1) 12/06/20 18:40 Seg Neutrophils % 67.3 % (40.0-70.0) 12/06/20 18:40 Seg Neutrophils # 3.9 K/mm3 (1.8-7.7) 12/06/20 18:40 Sodium 139 mmol/L (137-145) 12/06/20 18:40 Potassium 3.8 mmol/L (3.6-5.0) 12/06/20 18:40 Chloride 102.6 mmol/L (98-107) 12/06/20 18:40 Carbon Dioxide 28 mmol/L (22-30) 12/06/20 18:40 Anion Gap 12 mmol/L 12/06/20 18:40 BUN 10 mg/dL (7-17) 12/06/20 18:40 Creatinine 1.0 mg/dL (0.6-1.2) 12/06/20 18:40 Estimated GFR 57 ml/min 12/06/20 18:40 BUN/Creatinine Ratio 10 % 12/06/20 18:40 Glucose 106 mg/dL (65-100) H 12/06/20 18:40 POC Glucose 93 mg/dL (70-105) 12/11/20 08:24 Hemoglobin A1c 5.5 % (4-6) 12/06/20 18:40 Calcium 8.8 mg/dL (8.4-10.2) 12/06/20 18:40 Total Bilirubin 0.30 mg/dL (0.1-1.2) 12/06/20 18:40 AST 18 units/L (5-40) 12/06/20 18:40 ALT 19 units/L (7-56) 12/06/20 18:40 Alkaline Phosphatase 112 units/L (35-129) 12/06/20 18:40 Total Protein 6.8 g/dL (6.3-8.2) 12/06/20 18:40 Albumin 4.0 g/dL (3.9-5) 12/06/20 18:40 Albumin/Globulin Ratio 1.4 % 12/06/20 18:40 Triglycerides 95 mg/dL (2-149) 12/06/20 18:40 Cholesterol 175 mg/dL (50-199) 12/06/20 18:40 LDL Cholesterol Direct 104 mg/dL (50-130) 12/06/20 18:40 HDL Cholesterol 70 mg/dL (40-59) H 12/06/20 18:40 Cholesterol/HDL Ratio 2.50 % 12/06/20 18:40 TSH 31.910 mlU/mL (0.270-4.200) H 12/06/20 18:40 Valproic Acid 133.2 ug/mL (50-100) H 12/15/20 08:54 Last Vital Signs Temp 97.3 F L 12/16/20 13:13 Pulse 76 12/16/20 13:13 Resp 20 12/16/20 13:13 BP 101/55 12/16/20 13:13 Pulse Ox 95 12/16/20 13:13
[2020-12-17] MEDS: DIVALPROEX DR 250 MG TAB PO SCH ×2 (10:41→21:41)
[2020-12-17] MEDS: ARIPiprazole 15 MG TAB PO SCH (10:41)
[2020-12-17] MEDS: NICOTINE 21 MG/24 HR PATCH TD SCH (10:42)
[2020-12-17] MEDS: PANTOPRAZOLE 40 MG TAB PO SCH (10:43)
[2020-12-17] MEDS: DIVALPROEX DR 500 MG TAB PO SCH ×2 (10:44→21:41)
[2020-12-17] MEDS: traZODone 50 MG TAB PO SCH (21:41)
[2020-12-18] MEDS: LEVOTHYROXINE 125 MCG TAB PO SCH (06:15)
[2020-12-18] MEDS: ARIPiprazole 15 MG TAB PO SCH (09:38)
[2020-12-18] MEDS: DIVALPROEX DR 250 MG TAB PO SCH ×2 (09:38→21:10)
[2020-12-18] MEDS: NICOTINE 21 MG/24 HR PATCH TD SCH ×2 (09:39→09:50)
[2020-12-18] MEDS: DIVALPROEX DR 500 MG TAB PO SCH ×2 (09:39→21:09)
[2020-12-18] MEDS: PANTOPRAZOLE 40 MG TAB PO SCH (09:39)
--- NOTE | 2020-12-18 10:09 | Progress Note ---
Subjective Date of service: 12/18/20 Principal diagnosis: Schizophrenia Subjective Comment: The patient is sitting in the dayroom. She is a/o x 3. She is smiling and states she feels pretty good. She denies SI/HI or hallucinations of any kind. She also denies any problems with her sleep or appetite. Reason for continued inpatient treatment: The patient is clear from a psych standpoint. The patient will discharge once the social sciences chair is in and they can verify the correct address to ensue a safe discharge. REVIEW OF SYSTEMS Constitutional: Negative for weight loss ENT: Negative for stridor Respiratory: Negative for cough or hemoptysis All other systems reviewed and are negative MENTAL STATUS EXAMINATION General Appearance and Behavior: Age appropriate, good hygiene, wearing appropriate clothes, good eye contact Cooperation: Participating/engaged, but Guarded Psychomotor Behavior: Psychomotor normal Mood: depressed Affect and affective range: congruent with stated mood Thought Process: goal directed Thought Content: none Speech: Normal rate, volume and rhythm Suicidal Ideation: denies Homicidal Ideation: Denies Hallucinations: Denies Delusions: None elicited Impulse Control: Impaired Insight and Judgment: Limited insight and judgment Memory: limited Attention: Normal Orientation: Alert Assessment and Plan (1) Schizophrenia Current Visit: Yes Status: Acute F32.9 Treatment Plan Patient admitted for inpatient psychiatric evaluation, medication adjustment and close monitoring The patient's behavior, mood, sleep and appetite will be closely monitored. Patient enrolled in individual and group therapeutic sessions and encouraged to attend. Patient provided with a safe and structured environment. Patient's physical health needs will be addressed by the Hospitalist. Hospitalist Consulted Labs including CBC, CMP, Lipid profile and Hemoglobin A1C levels ordered for baseline reference Social Assessment will be completed and the Vice President Of Manufacturing will work with patient and family to ensure a suitable and safe disposition Medication adjustment will be made as clinically indicated No changes made today Usual Wellness Islam/Preservation: - Start Trazodone 50 mg po QHS & 50 mg po QHS PRN between 10 PM & 2 AM for insomnia - Start Melatonin 5 mg po QHS to promote circadian rhythm - Start [place]-3 for brain health, reduce impulsivity, and as adjunctive treatment for mood disorder, continue upon discharge given overall benefits. - Start B1 prophylaxis with 200 mg po for 5 days The patient agreed on the treatment plan, understood the risk, benefit, alternative treatment, potential consequence of no treatment, and gave informed consent. Estimated days: 3 Post hospital care: primary care provider, psychiatric provider Medications and Allergies Allergies Allergy/AdvReac Type Severity Reaction Status Date / Time chlorpromazine Allergy Unknown Verified 12/06/20 10:35 haloperidol Allergy Unknown Verified 12/06/20 10:35 ketorolac Allergy Unknown Verified 12/06/20 10:35 risperidone Allergy Unknown Verified 12/06/20 10:35 Home Medications Medication Instructions Recorded Confirmed Last Taken Type Ibuprofen [Motrin 600 MG tab] 600 mg PO TID 12/06/20 12/06/20 Unknown History Levothyroxine [Synthroid] 125 mcg PO QAM 12/06/20 12/06/20 Unknown History Pantoprazole [Protonix TAB] 40 mg PO QDAY 12/06/20 12/06/20 Unknown History ARIPiprazole [Abilify TAB] 15 mg PO QDAY #30 tablet 12/16/[address] [Yessy Friedman] 250 mg PO BID #60 tablet 12/16/[address] [Yessy Friedman] 500 mg PO BID #60 12/16/20 Unknown Rx Nicotine [Habitrol] 21 mg TD DAILY #30 patch 12/16/20 Unknown Rx traZODone [Desyrel] 100 mg PO QHS #30 12/16/20 Unknown Rx Active Meds: Active Medications Aripiprazole (Aripiprazole 15 Mg Tab) 15 mg PO QDAY [facility] OF [facility] Last Admin: 12/18/20 09:38 Dose: 15 mg Documented by: Bismuth Subsalicylate (Bismuth Subsalicylate 262 Mg/15 Ml Oral Liqd) 524 mg PO Q6H PRN PRN Reason: Indigestion Last Admin: 12/14/20 17:58 Dose: 524 mg Documented by: Divalproex Sodium (Divalproex Dr 500 Mg Tab) 500 mg PO BID [facility] Last Admin: 12/18/20 09:39 Dose: 500 mg Documented by: Divalproex Sodium (Divalproex Dr 250 Mg Tab) 250 mg PO BID [facility] Last Admin: 12/18/20 09:38 Dose: 250 mg Documented by: Levothyroxine Sodium (Levothyroxine 125 Mcg Tab) 125 mcg PO 0600 [facility] Last Admin: 12/18/20 06:15 Dose: 125 mcg Documented by: Nicotine (Nicotine 21 Mg/24 Hr Patch) 21 mg TD DAILY [facility] Last Admin: 12/18/20 09:50 Dose: 21 mg Documented by: Ondansetron HCl (Ondansetron 4 Mg Odt Tab) 4 mg PO Q8H PRN PRN Reason: Nausea And Vomiting Last Admin: 12/14/20 19:37 Dose: 4 mg Documented by: Pantoprazole Sodium (Pantoprazole 40 Mg Tab) 40 mg PO QDAY [facility] Last Admin: 12/18/20 09:39 Dose: 40 mg Documented by: Trazodone HCl (Trazodone 50 Mg Tab) 100 mg PO QHS [facility] OF [facility] Last Admin: 12/17/20 21:41 Dose: 100 mg Documented by: Results - Results Labs/Vitals: Laboratory Last Values WBC 5.7 K/mm3 (4.5-11.0) 12/06/20 18:40 RBC 4.64 M/mm3 (3.65-5.03) 12/06/20 18:40 Hgb 14.0 gm/dl (10.1-14.3) 12/06/20 18:40 Hct 42.9 % (30.3-42.9) 12/06/20 18:40 MCV 93 fl (79-97) 12/06/20 18:40 MCH 30 pg (28-32) 12/06/20 18:40 MCHC 33 % (30-34) 12/06/20 18:40 RDW 14.4 % (13.2-15.2) 12/06/20 18:40 Plt Count 256 K/mm3 (140-440) 12/06/20 18:40 Lymph % (Auto) 23.2 % (13.4-35.0) 12/06/20 18:40 [place] % (Auto) 5.4 % (0.0-7.3) 12/06/20 18:40 Eos % (Auto) 3.4 % (0.0-4.3) 12/06/20 18:40 Baso % (Auto) 0.7 % (0.0-1.8) 12/06/20 18:40 Lymph # (Auto) 1.3 K/mm3 (1.2-5.4) 12/06/20 18:40 [place] # (Auto) 0.3 K/mm3 (0.0-0.8) 12/06/20 18:40 Eos # (Auto) 0.2 K/mm3 (0.0-0.4) 12/06/20 18:40 Baso # (Auto) 0.0 K/mm3 (0.0-0.1) 12/06/20 18:40 Seg Neutrophils % 67.3 % (40.0-70.0) 12/06/20 18:40 Seg Neutrophils # 3.9 K/mm3 (1.8-7.7) 12/06/20 18:40 Sodium 139 mmol/L (137-145) 12/06/20 18:40 Potassium 3.8 mmol/L (3.6-5.0) 12/06/20 18:40 Chloride 102.6 mmol/L (98-107) 12/06/20 18:40 Carbon Dioxide 28 mmol/L (22-30) 12/06/20 18:40 Anion Gap 12 mmol/L 12/06/20 18:40 BUN 10 mg/dL (7-17) 12/06/20 18:40 Creatinine 1.0 mg/dL (0.6-1.2) 12/06/20 18:40 Estimated GFR 57 ml/min 12/06/20 18:40 BUN/Creatinine Ratio 10 % 12/06/20 18:40 Glucose 106 mg/dL (65-100) H 12/06/20 18:40 POC Glucose 93 mg/dL (70-105) 12/11/20 08:24 Hemoglobin A1c 5.5 % (4-6) 12/06/20 18:40 Calcium 8.8 mg/dL (8.4-10.2) 12/06/20 18:40 Total Bilirubin 0.30 mg/dL (0.1-1.2) 12/06/20 18:40 AST 18 units/L (5-40) 12/06/20 18:40 ALT 19 units/L (7-56) 12/06/20 18:40 Alkaline Phosphatase 112 units/L (35-129) 12/06/20 18:40 Total Protein 6.8 g/dL (6.3-8.2) 12/06/20 18:40 Albumin 4.0 g/dL (3.9-5) 12/06/20 18:40 Albumin/Globulin Ratio 1.4 % 12/06/20 18:40 Triglycerides 95 mg/dL (2-149) 12/06/20 18:40 Cholesterol 175 mg/dL (50-199) 12/06/20 18:40 LDL Cholesterol Direct 104 mg/dL (50-130) 12/06/20 18:40 HDL Cholesterol 70 mg/dL (40-59) H 12/06/20 18:40 Cholesterol/HDL Ratio 2.50 % 12/06/20 18:40 TSH 31.910 mlU/mL (0.270-4.200) H 12/06/20 18:40 Valproic Acid 133.2 ug/mL (50-100) H 12/15/20 08:54 Last Vital Signs Temp 98.5 F 12/18/20 09:04 Pulse 95 H 12/18/20 09:04 Resp 18 12/18/20 09:04 BP 92/64 12/18/20 09:04 Pulse Ox 98 12/18/20 09:04
[2020-12-18] MEDS: traZODone 50 MG TAB PO SCH (21:10)
[2020-12-19] MEDS: LEVOTHYROXINE 125 MCG TAB PO SCH (06:02)
--- NOTE | 2020-12-19 09:07 | Discharge Summary ---
Providers - Providers Date of Admission: 12/06/20 09:20 Date of discharge: 12/19/20 Attending physician: ZEN DO MD 12/06/20 09:20 Consult to Physician [CONS] Routine Comment: Consulting Provider: YVONNE RODRIGUEZ Physician Instructions: Reason For Exam: manage medical conditions Primary care physician: [employer] Hospitalization Reason for admission: schizophrenia Admitting Diagnosis: F20.9 - SCHIZOPHRENIA, UNSPECIFIED Condition: Stable Hospital course: The patient was provided inpatient psychiatric treatment with safe and supportive care, medication adjustment, adverse effect monitoring, medical evaluations, medical treatments, assessment and psycho-education. The patient's mood, cognition, behavior, moral support are improved and stabilized. St the time of discharge, the patient had no endangering behavior and no debilitating adverse effects. The patient agreed on potential consequences of no treatment and gave informed consent. Disposition: - TO HOME OR SELFCARE Time spent for discharge: 38 Allergies/Adverse Reactions: Allergies chlorpromazine Allergy (Verified 12/06/20 10:35) Unknown haloperidol Allergy (Verified 12/06/20 10:35) Unknown ketorolac Allergy (Verified 12/06/20 10:35) Unknown risperidone Allergy (Verified 12/06/20 10:35) Unknown Vital Signs: Last Vital Signs Temp 97.6 F 12/18/20 22:00 Pulse 70 12/18/20 22:00 Resp 15 12/18/20 22:00 BP 112/69 12/18/20 22:00 Pulse Ox 96 12/18/20 22:00 Last Lab: Laboratory Last Values WBC 5.7 K/mm3 (4.5-11.0) 12/06/20 18:40 RBC 4.64 M/mm3 (3.65-5.03) 12/06/20 18:40 Hgb 14.0 gm/dl (10.1-14.3) 12/06/20 18:40 Hct 42.9 % (30.3-42.9) 12/06/20 18:40 MCV 93 fl (79-97) 12/06/20 18:40 MCH 30 pg (28-32) 12/06/20 18:40 MCHC 33 % (30-34) 12/06/20 18:40 RDW 14.4 % (13.2-15.2) 12/06/20 18:40 Plt Count 256 K/mm3 (140-440) 12/06/20 18:40 Lymph % (Auto) 23.2 % (13.4-35.0) 12/06/20 18:40 [place] % (Auto) 5.4 % (0.0-7.3) 12/06/20 18:40 Eos % (Auto) 3.4 % (0.0-4.3) 12/06/20 18:40 Baso % (Auto) 0.7 % (0.0-1.8) 12/06/20 18:40 Lymph # (Auto) 1.3 K/mm3 (1.2-5.4) 12/06/20 18:40 [place] # (Auto) 0.3 K/mm3 (0.0-0.8) 12/06/20 18:40 Eos # (Auto) 0.2 K/mm3 (0.0-0.4) 12/06/20 18:40 Baso # (Auto) 0.0 K/mm3 (0.0-0.1) 12/06/20 18:40 Seg Neutrophils % 67.3 % (40.0-70.0) 12/06/20 18:40 Seg Neutrophils # 3.9 K/mm3 (1.8-7.7) 12/06/20 18:40 Sodium 139 mmol/L (137-145) 12/06/20 18:40 Potassium 3.8 mmol/L (3.6-5.0) 12/06/20 18:40 Chloride 102.6 mmol/L (98-107) 12/06/20 18:40 Carbon Dioxide 28 mmol/L (22-30) 12/06/20 18:40 Anion Gap 12 mmol/L 12/06/20 18:40 BUN 10 mg/dL (7-17) 12/06/20 18:40 Creatinine 1.0 mg/dL (0.6-1.2) 12/06/20 18:40 Estimated GFR 57 ml/min 12/06/20 18:40 BUN/Creatinine Ratio 10 % 12/06/20 18:40 Glucose 106 mg/dL (65-100) H 12/06/20 18:40 POC Glucose 93 mg/dL (70-105) 12/11/20 08:24 Hemoglobin A1c 5.5 % (4-6) 12/06/20 18:40 Calcium 8.8 mg/dL (8.4-10.2) 12/06/20 18:40 Total Bilirubin 0.30 mg/dL (0.1-1.2) 12/06/20 18:40 AST 18 units/L (5-40) 12/06/20 18:40 ALT 19 units/L (7-56) 12/06/20 18:40 Alkaline Phosphatase 112 units/L (35-129) 12/06/20 18:40 Total Protein 6.8 g/dL (6.3-8.2) 12/06/20 18:40 Albumin 4.0 g/dL (3.9-5) 12/06/20 18:40 Albumin/Globulin Ratio 1.4 % 12/06/20 18:40 Triglycerides 95 mg/dL (2-149) 12/06/20 18:40 Cholesterol 175 mg/dL (50-199) 12/06/20 18:40 LDL Cholesterol Direct 104 mg/dL (50-130) 12/06/20 18:40 HDL Cholesterol 70 mg/dL (40-59) H 12/06/20 18:40 Cholesterol/HDL Ratio 2.50 % 12/06/20 18:40 TSH 31.910 mlU/mL (0.270-4.200) H 12/06/20 18:40 Valproic Acid 133.2 ug/mL (50-100) H 12/15/20 08:54 Core Measure Documentation - Palliative Care Palliative Care/ Comfort Measures: Not Applicable - Core Measures Any of the following diagnoses?: none Exam - Constitutional Vitals: Temp Pulse Resp BP Pulse Ox 97.6 F 70 15 112/69 96 12/18/20 22:00 12/18/20 22:00 12/18/20 22:00 12/18/20 22:00 12/18/20 22:00 General appearance: Present: no acute distress - EENT Eyes: Present: PERRL, EOM intact ENT: hearing intact, clear oral mucosa - Neck Neck: Present: supple, normal ROM - Respiratory Respiratory effort: normal Plan Activity: advance as tolerated Weight Bearing Status: Weight Bear as Tolerated Care Plan Goals: Maintain good and stable mental health Plan of Treatment: The patient should be compliant with medications, not to use drugs, and not to drink alcohol. The patient understands that if suicidal ideas, homicidal ideas or any endangering feeling arise, the patient should seek assistance including, but not limited to crisis hotline, and emergency room. Follow up with: PRIMARY CARE, [Primary Care Provider] - 7 Days Prescriptions: traZODone [Desyrel] 100 mg PO QHS #30 ARIPiprazole [Abilify TAB] 15 mg PO QDAY #30 tablet Divalproex [Yessy Friedman] 500 mg PO BID #[address] [Yessy Friedman] 250 mg PO BID #60 tablet Nicotine [Habitrol] 21 mg TD DAILY #30 patch
[2020-12-19] MEDS: NICOTINE 21 MG/24 HR PATCH TD SCH (10:53)
[2020-12-19] MEDS: ARIPiprazole 15 MG TAB PO SCH (10:53)
[2020-12-19] MEDS: DIVALPROEX DR 500 MG TAB PO SCH ×2 (10:54→21:42)
[2020-12-19] MEDS: PANTOPRAZOLE 40 MG TAB PO SCH (10:54)
[2020-12-19] MEDS: DIVALPROEX DR 250 MG TAB PO SCH ×2 (10:54→21:43)
[2020-12-19] MEDS: traZODone 50 MG TAB PO SCH (21:42)
[2020-12-20] MEDS: LEVOTHYROXINE 125 MCG TAB PO SCH (05:24)
--- NOTE | 2020-12-20 08:48 | Discharge Summary ---
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 The patient's mood, cognition, behavior, moral support are improved and stabilized. St the time of discharge, the patient had no endangering behavior and no debilitating adverse effects. The patient agreed on potential consequences of no treatment and gave informed consent. Disposition: - TO HOME OR SELFCARE Time spent for discharge: 38 Allergies/Adverse Reactions: Allergies chlorpromazine Allergy (Verified 12/06/20 10:35) Unknown haloperidol Allergy (Verified 12/06/20 10:35) Unknown ketorolac Allergy (Verified 12/06/20 10:35) Unknown risperidone Allergy (Verified 12/06/20 10:35) Unknown Vital Signs: Last Vital Signs Temp 98.0 F 12/19/20 19:48 Pulse 75 12/19/20 19:48 Resp 18 12/19/20 19:48 BP 93/53 12/19/20 19:48 Pulse Ox 93 12/19/20 19:48 Last Lab: Laboratory Last Values WBC 5.7 K/mm3 (4.5-11.0) 12/06/20 18:40 RBC 4.64 M/mm3 (3.65-5.03) 12/06/20 18:40 Hgb 14.0 gm/dl (10.1-14.3) 12/06/20 18:40 Hct 42.9 % (30.3-42.9) 12/06/20 18:40 MCV 93 fl (79-97) 12/06/20 18:40 MCH 30 pg (28-32) 12/06/20 18:40 MCHC 33 % (30-34) 12/06/20 18:40 RDW 14.4 % (13.2-15.2) 12/06/20 18:40 Plt Count 256 K/mm3 (140-440) 12/06/20 18:40 Lymph % (Auto) 23.2 % (13.4-35.0) 12/06/20 18:40 [place] % (Auto) 5.4 % (0.0-7.3) 12/06/20 18:40 Eos % (Auto) 3.4 % (0.0-4.3) 12/06/20 18:40 Baso % (Auto) 0.7 % (0.0-1.8) 12/06/20 18:40 Lymph # (Auto) 1.3 K/mm3 (1.2-5.4) 12/06/20 18:40 [place] # (Auto) 0.3 K/mm3 (0.0-0.8) 12/06/20 18:40 Eos # (Auto) 0.2 K/mm3 (0.0-0.4) 12/06/20 18:40 Baso # (Auto) 0.0 K/mm3 (0.0-0.1) 12/06/20 18:40 Seg Neutrophils % 67.3 % (40.0-70.0) 12/06/20 18:40 Seg Neutrophils # 3.9 K/mm3 (1.8-7.7) 12/06/20 18:40 Sodium 139 mmol/L (137-145) 12/06/20 18:40 Potassium 3.8 mmol/L (3.6-5.0) 12/06/20 18:40 Chloride 102.6 mmol/L (98-107) 12/06/20 18:40 Carbon Dioxide 28 mmol/L (22-30) 12/06/20 18:40 Anion Gap 12 mmol/L 12/06/20 18:40 BUN 10 mg/dL (7-17) 12/06/20 18:40 Creatinine 1.0 mg/dL (0.6-1.2) 12/06/20 18:40 Estimated GFR 57 ml/min 12/06/20 18:40 BUN/Creatinine Ratio 10 % 12/06/20 18:40 Glucose 106 mg/dL (65-100) H 12/06/20 18:40 POC Glucose 93 mg/dL (70-105) 12/11/20 08:24 Hemoglobin A1c 5.5 % (4-6) 12/06/20 18:40 Calcium 8.8 mg/dL (8.4-10.2) 12/06/20 18:40 Total Bilirubin 0.30 mg/dL (0.1-1.2) 12/06/20 18:40 AST 18 units/L (5-40) 12/06/20 18:40 ALT 19 units/L (7-56) 12/06/20 18:40 Alkaline Phosphatase 112 units/L (35-129) 12/06/20 18:40 Total Protein 6.8 g/dL (6.3-8.2) 12/06/20 18:40 Albumin 4.0 g/dL (3.9-5) 12/06/20 18:40 Albumin/Globulin Ratio 1.4 % 12/06/20 18:40 Triglycerides 95 mg/dL (2-149) 12/06/20 18:40 Cholesterol 175 mg/dL (50-199) 12/06/20 18:40 LDL Cholesterol Direct 104 mg/dL (50-130) 12/06/20 18:40 HDL Cholesterol 70 mg/dL (40-59) H 12/06/20 18:40 Cholesterol/HDL Ratio 2.50 % 12/06/20 18:40 TSH 31.910 mlU/mL (0.270-4.200) H 12/06/20 18:40 Valproic Acid 133.2 ug/mL (50-100) H 12/15/20 08:54 Core Measure Documentation - Palliative Care Palliative Care/ Comfort Measures: Not Applicable - Core Measures Any of the following diagnoses?: none Exam - Constitutional Vitals: Temp Pulse Resp BP Pulse Ox 98.0 F 75 18 93/53 93 12/19/20 19:48 12/19/20 19:48 12/19/20 19:48 12/19/20 19:48 12/19/20 19:48 General appearance: Present: no acute distress - EENT Eyes: Present: EOM intact ENT: hearing intact, clear oral mucosa - Neck Neck: Present: supple, normal ROM - Respiratory Respiratory effort: normal Plan Activity: advance as tolerated Weight Bearing Status: Weight Bear as Tolerated Care Plan Goals: Maintain good and stable mental health Plan of Treatment: The patient should be compliant with medications, not to use drugs, and not to drink alcohol. The patient understands that if suicidal ideas, homicidal ideas or any endangering feeling arise, the patient should seek assistance including, but not limited to crisis hotline, and emergency room. Follow up with: PRIMARY CARE, [Primary Care Provider] - 7 Days Prescriptions: traZODone [Desyrel] 100 mg PO QHS #30 ARIPiprazole [Abilify TAB] 15 mg PO QDAY #30 tablet Divalproex [Yessy Friedman] 500 mg PO BID #[address] [Yessy Friedman] 250 mg PO BID #60 tablet Nicotine [Habitrol] 21 mg TD DAILY #30 patch
[2020-12-20 09:02] VITALS: BP 104/60
[2020-12-20] MEDS: DIVALPROEX DR 250 MG TAB PO SCH (09:03)
[2020-12-20] MEDS: DIVALPROEX DR 500 MG TAB PO SCH (09:03)
[2020-12-20] MEDS: ARIPiprazole 15 MG TAB PO SCH (09:04)
[2020-12-20] MEDS: PANTOPRAZOLE 40 MG TAB PO SCH (09:04)
[2020-12-20] MEDS: NICOTINE 21 MG/24 HR PATCH TD SCH (09:04)
== END 2020-12-20 14:07 | disposition home or self-care (01) | DRG 885 ==
LOC: UNDOADMIN 06:44 → 3A 06:44 → 5A 09:20 → UNDODISIN 12-16 20:15
PROVIDERS: ADMIT Psychiatry & Neurology Psychiatry; ATTEND Psychiatry & Neurology Psychiatry
DX: F20.9 Schizophrenia, unspecified (principal); F17.213 Nicotine dependence, cigarettes, with withdrawal; E66.9 Obesity, unspecified; Z79.899 Other long term (current) drug therapy; Z82.49 Family history of ischemic heart disease and other diseases of the circulatory system; Z68.39 Body mass index [BMI] 39.0-39.9, adult
CPT/HCPCS: 36415; 80053; 80061; 80164; 82962; 83036; 84443; 85025; G0378; Q0162